=== PATIENT | male | born 1965 | race Hispanic/Latino ===

== ENCOUNTER 2023-04-23 17:55 | Inpatient (IN) | payer SELFPAY ==
[2023-04-23] VITALS (8 sets, daily range): BP systolic 116–149; BP diastolic 67–79; PULSE 99–117; RESP 18–24; TEMP 36.4–36.7; O2SAT 95–100; BMI 26.1; BMI 23.8
[2023-04-23 18:23] LABS: Bedside Glucose > 500 mg/dL (74-106)
[2023-04-23] MEDS: 0.9% Normal Saline (1000mL) 1,000 ML 1000 ML IV (18:30)
[2023-04-23 18:40] LABS: Absolute Lymphocyte Count 0.88 X10^3/uL (0.83-4.51); Absolute Neutrophil Count 23.1 X10^3/uL (2.0-7.7); Basophil# 0.09 X10^3/uL; Basophil% 0.4 % (0-1); Hematocrit 42.3 % (40-54); Hemoglobin 14.1 g/dL (13.0-16.5); Lymphocyte # 0.88 X10^3/ul (0.83-4.51); Lymphocyte % 3.5 % (19-41); Mean Corp Hgb Conc 33.3 g/dL (32-36); Mean Corpuscular Hgb 30.9 pg (27.0-32.0); Mean Corpuscular Volume 92.8 fL (80-94); Monocyte# 1.15 X10^3/uL; Monocyte% 4.5 % (0-10); NRBC Flagged by Analyzer 0 % (0-5); Neutrophil # 23.06 X10^3/uL (2.7-7.7); Neutrophil % 90.5 % (47-70); POSITIVE DIFFERENTIAL YES; Platelet Count 482 K/mm3 (150-450); RBC Distribution Width CV 11.9 % (11.6-14.6); RBC Distribution Width SD 41.2 fl (35.1-43.9); Red Blood Count 4.56 M/mm3 (4.6-6.2); White Blood Count 25.5 K/mm3 (4.4-11.0)
--- NOTE | 2023-04-23 18:42 | EX.ED.DYSGE1 ---
HPI History of Present Illness Chief Complaint: Hyperglycemia Informant: patient Narrative Narrative: Patient presents with high blood sugar. 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 All indications is this person speaks very good [place] Citizen and very good Dominican and I do feel we get a good translation. Patient has had diabetes for a long time. He is not sure how long. He has been on a medicine called TriEnta from [place]. He was told to take it once a day or twice a day if his sugars are high. I am trying to look this up as it may be metformin. He still has the medicine and has not run out. But for the last 5 or so days his blood sugar seems higher. He has been peeing more drinking more and has blurry vision. Occasional cough but not short of breath. No abdominal pain no nausea vomiting. No change in bowel habits. There appears to be something on his legs. We have to get his pants off to look at these. [facility] Medical History Diabetes Home Medications TRAYENTA 1 tab PO BID DIABETES 04/23/23 [History Last Taken 04/22/23] cephalexin 500 mg capsule 500 mg PO Q8 6 days #18 caps 04/27/23 [Rx Last Taken Unknown] insulin admin supplies #1 ea 04/27/23 [Rx Last Taken Unknown] insulin glargine-yfgn 100 unit/mL (3 mL) subcutaneous pen 30 unit (0.3 mL) subcut DAILY 30 days #9 mL 04/27/23 [Rx Last Taken Unknown] Allergy/AdvReac Type Severity Reaction Status Date / Time No Known Allergies Allergy Verified 04/23/23 17:57 Social History Smoking Status: Former smoker ROS ROS ED Constitutional Constitutional ED: Denies chills or fever(s) Eyes Eyes: Reports blurry vision and change in vision ENT ENT ED: Denies sore throat Cardiovascular Cardiovascular: Denies chest pain Respiratory/Chest Respiratory/Chest: Reports cough; Denies dyspnea Gastrointestinal Gastrointestinal: Denies abdominal pain, diarrhea, nausea or vomiting Genitourinary Genitourinary ED: Denies dysuria Musculoskeletal Musculoskeletal: Denies myalgias Integumentary Denies rash Neurologic Neurologic: Denies headache(s), paresthesias or weakness Endocrine Endocrinology: Reports polydipsia and polyuria Hematologic/Lymphatic Hematologic/Lymphatic: Denies easy bleeding or easy bruising Allergic/Immunologic Allergic/Immunologic ED: Denies urticaria EXAM Physical Exam Narrative Exam Narrative: CONSTITUTIONAL: Patient is not toxic. But he is breathing quickly and his mucous membranes are obviously quite dry. HEENT: No notable trauma. Mucous membranes do look quite dry. No sinus tenderness. No indication of pain with swallowing. EYES: No conjunctival injection. No pallor. NECK:No JVD. No stridor. CARDIOVASCULAR: Tachycardic rate. Regular rhythm. No notable murmur. No JVD. RESPIRATORY: No respiratory distress. Breathing is unlabored but it is quicker than normal. No wheezes. No rhonchi. No rales. No pain with a deep breath. No chest wall tenderness. GASTROINTESTINAL: Flat and not distended. Bowel sounds are normal. No tenderness. No guarding. No rebound. No palpable mass. No bruit is heard. GENITOURINARY: No CVA tenderness. MUSCULOSKELETAL: Atraumatic. No peripheral edema. No cord. No tenderness along the deep venous system. No asymmetry. No distended veins. NEUROLOGICAL: Patient is alert and appropriate. No focal deficit noted. SKIN: No noted rashes. No diaphoresis. PSYCHIATRIC: Patient is calm. Mood is appropriate. Const Vital Signs: 04/23/23 17:56 04/23/23 19:11 Temperature 98 F Temperature Source Temporal Pulse Rate 111 H Respiratory Rate 20 H Respiratory Effort Normal Non-Labored Blood Pressure 149/76 H Blood Pressure Mean 100 Pulse Ox 100 Oxygen Delivery Method Room Air MDM MDM MDM Narrative Medical decision making narrative: We were able to get the pants off. There is some discussion argument about this. He also had heavy boots socks on. When we get these off we see the source of his problem. He has multiple sores and small draining abscesses most notably on his right lateral thigh and left proximal anterior lateral moreno. 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 He has never had these before. He still denies any fever with this though. I have added procalcitonin blood cultures lactate and antibiotics at this point. CBC shows significantly high white count supportive of infection as the initiating problem for DKA. Electrolytes show findings consistent with DKA including glucose elevated creatinine low bicarb and high anion gap. At this time potassium is still normal at 5.7. Serum acetone is large. Patient is placed on insulin drip. He will be admitted to the hospital. Lab Data Attestation: I reviewed the patient's lab results. Labs: Laboratory Results - last 24 hr 04/23/23 04/23/23 04/23/23 18:02 18:30 19:45 WBC 25.5 H RBC 4.56 L Hgb 14.1 Hct 42.3 MCV 92.8 MCH 30.9 MCHC 33.3 RDW Std Deviation 41.2 RDW Coeff of Edgar 11.9 Plt Count 482 H MPV 9.0 Immature Gran % (Auto) 1.100 H Neut % (Auto) 90.5 H Lymph % (Auto) 3.5 L [place] % (Auto) 4.5 Eos % (Auto) 0.0 Baso % (Auto) 0.4 Absolute Neuts (auto) 23.1 H Absolute Lymphs (auto) 0.88 Nucleated RBC % 0 Differential Comment SEE COMMENT Platelet Estimate SLT INC RBC Morphology N CHROM Anisocytosis RARE Macrocytosis RARE Ovalocytes RARE Sodium 130 L Potassium 4.7 Chloride 103 Carbon Dioxide 6.0 L* Anion Gap 21 H BUN 29 H Creatinine 1.53 H Estim Creat Clear Calc 41.84 Est GFR (MDRD) Af Amer 60 Est GFR (MDRD) Non-Af 50 L BUN/Creatinine Ratio 19.0 Glucose 667 H* Calcium 9.5 Urine Color Straw Urine Clarity Clear Urine pH 5.0 Ur Specific [place] 1.015 Urine Protein 30 H Urine Glucose (UA) 1000 H Urine Ketones 150 A* Urine Occult Blood 50 H Urine Nitrite Negative Urine Bilirubin Negative Urine Urobilinogen Normal Ur Leukocyte Esterase Negative Acetone Level LARGE H POC Glucose > 500 H* Radiography Diagnostic Testing: Clinical Impression(s) from Imaging Studies Chest X-Ray 04/23/23 20:27 IMPRESSION: Normal x-ray examination of the chest. Electronically Signed: Lux Munoz MD at 20:48 EST , Management Discussion w/another healthcare provider: Hospitalist Critical Care Time Critical Care Time: Yes Critical care time (excluding procedures): 30-74 minutes, Discussing w/Patient &/or Family/Legal Secretary Receptionist, Discussing w/Consultants, Arranging Admission or Transfer, Performing Direct Patient Care at Bedside and - (40 minutes, repeat bedside evaluations, altering therapies, charting, discussing with risk management consultant) Discharge Plan Dx/Rx/DC Orders Clinical Impression: Cutaneous abscess of extremity, DKA (diabetic ketoacidoses), Bilateral cellulitis of lower leg, Dehydration Disposition Disposition: Acute Care Hospital [facility] Discharge Date/Time: 04/23/23 23:10
[2023-04-23 19:03] LABS: Anion Gap 21 (5-15); BUN 29 mg/dL (7-18); Calcium,Total 9.5 mg/dL (8.5-10.1); Chloride 103 mmol/L (98-107); Creatinine, Serum 1.53 mg/dL (0.70-1.30); EST Glomerular Filtration Rate 50 mL/min (>60); Est Glom Filt Rate - Afr Amer 60 mL/min (>60); Estimated Creatinine Clearance 41.84 ml/min; Glucose 667 mg/dL (74-106); Potassium 4.7 mmol/L (3.5-5.1); Sodium Level 130 mmol/L (136-145)
[2023-04-23 19:15] LABS: Differential Indicated SCAN CRITERIA MET
[2023-04-23 19:16] LABS: Anisocytosis RARE; Macrocytosis RARE; Ovalocyte RARE; Platelet Estimate SLT INC (ADEQ); Red Cell Morphology N CHROM NORMAL (NORM C&C)
--- NOTE | 2023-04-23 19:49 | PCM.HP.STD ---
[facility] - General General Date of Admission: 04/23/23 Date of Service: 04/23/23 Chief Complaint: Hyperglycemia and Sores on Legs. HPI Narrative ALEE CAMACHO, is a 58 M with a past medical history of DM-2; of unknown control who presents to [facility] ER complaining of hyperglycemia and sores on his legs. Mr. Camacho does not speak Filipino so information was gathered from chart, medical staff and computer. According to the records he is a chronic diabetic and has been prescribed Tryenta from [place] and he then noted that his blood glucose has been persistently elevated for the past 5 days. He was apparently told to take it once a day or twice a day if his blood glucose was elevated. He informed the ER that he still has the medication and has no run out of it. He admits to excessive thirst, excessive urination and blurry vision along with worsening sores on both of his legs with surrounding erythema. He denies associated fever, chills, nausea, vomiting, diarrhea, constipation or abdominal pain. In the ER he was diagnosed with DKA; evidenced by a blood glucose of 667 mg/dL present on admission and increased anion-gap metabolic acidosis with a HCO3 of 6 and large serum acetone complicated by clinical evidence of cellulitis of his legs with leukocytosis of 25.5 present on admission compounded by suspected AZRA due to dehydration with elevated creatinine of 1.53 mg/dL and BUN of 29 mg/dL present on admission (with no previous labs available for comparison) and he was then admitted to the ICU for ongoing care for a stay that is expected to be greater than 48 hours. [facility] Medical History Diabetes Home Medications TRAYENTA 1 tab PO BID DIABETES 04/23/23 [History Last Taken 04/22/23] Allergy/AdvReac Type Severity Reaction Status Date / Time No Known Allergies Allergy Verified 04/23/23 17:57 Social History Smoking Status: Former smoker ROS ROS Narrative Patient does not speak Filipino so a full ROS was not possible. Review of Systems ROS Unobtainable: other Vital Signs Vital Signs Vital Signs: 04/23/23 17:56 04/23/23 19:11 Temperature 98 F Temperature Source Temporal Pulse Rate 111 H Respiratory Rate 20 H Respiratory Effort Normal Non-Labored Blood Pressure 149/76 H Blood Pressure Mean 100 Pulse Ox 100 Oxygen Delivery Method Room Air Weight Weight: 147 lb 7 oz Body Mass Index (BMI) 26.1 Physical Exam Const alert, oriented x3, no apparent distress and average body habitus General Appearance: cooperative HEENT normocephalic, head/scalp atraumatic and hearing grossly normal bilaterally HEENT Narrative: Mucous membranes appear dry. Eyes PERRL, EOMs intact bilaterally and conjunctivae normal Neck no lymphadenopathy and supple Resp normal respiratory effort, no retractions, no use of accessory muscles and clear to auscultation bilaterally Cardio regular rate and regular rhythm GI normal to inspection, nondistended, normoactive bowel sounds, soft to palpation, non-tender and non-distended Skin Skin Narrative: Patient has several sores on both lower extremities with evidence of surrounding cellulitis and suspected abscesses. Neuro oriented x3, CN's II-XII intact bilaterally, moves all extremities and no focal motor deficits Sensorium / Orientation: awake, alert, oriented to person, oriented to place and oriented to time Speech: speech normal Motor Exam: strength 5/5 throughout Psych affect normal Results Medical Records Data Attestation: I reviewed the patient's medical records Lab / Micro Data Attestation: I reviewed the patient's lab results. 04/23/23 18:30 04/23/23 19:40 Labs: Laboratory Results - last 24 hr 04/23/23 18:02: POC Glucose > 500 H* 04/23/23 18:30: WBC 25.5 H, RBC 4.56 L, Hgb 14.1, Hct 42.3, MCV 92.8, MCH 30.9, MCHC 33.3, RDW Std Deviation 41.2, RDW Coeff of Edgar 11.9, Plt Count 482 H, MPV 9.0, Immature Gran % (Auto) 1.100 H, Neut % (Auto) 90.5 H, Lymph % (Auto) 3.5 L, Esmeralda % (Auto) 4.5, Eos % (Auto) 0.0, Baso % (Auto) 0.4, Absolute Neuts (auto) 23.1 H, Absolute Lymphs (auto) 0.88, Nucleated RBC % 0, Differential Comment SEE COMMENT, Platelet Estimate SLT INC, RBC Morphology N CHROM, Anisocytosis RARE, Macrocytosis RARE, Ovalocytes RARE, Sodium 130 L, Potassium 4.7, Chloride 103, Carbon Dioxide 6.0 L*, Anion Gap 21 H, BUN 29 H, Creatinine 1.53 H, Estim Creat Clear Calc 41.84, Est GFR (MDRD) Af Amer 60, Est GFR (MDRD) Non-Af 50 L, BUN/Creatinine Ratio 19.0, Glucose 667 H*, Calcium 9.5, Acetone Level LARGE H Assessment & Plan Assessment/Plan (1) DKA (diabetic ketoacidoses): QUALIFIERS: Diabetes mellitus type: type 2 Diabetes mellitus complication detail: without coma Qualified Code(s): E11.10 - Type 2 diabetes mellitus with ketoacidosis without coma (2) Bilateral cellulitis of lower leg: (3) AZRA (acute kidney injury): PLAN: Plan 1. DKA; in the setting of chronic DM-2; uncontrolled with hyperglycemia - Admit to ICU for treatment under the DKA protocol. Continue IV insulin drip along with vigorous volume resuscitation. Recheck serum acetone in the AM to monitor for improvement. 2. LE Cellulitis with leukocytosis of 25.5 present on admission complicating and likely triggering #1 - Continue IV Zosyn begun in the ER and await culture and sensitivity data. 3. Suspected AZRA due to Dehydration arising from #1 & #2 - Give copious IVF and then recheck BMP in the AM to confirm suspicion with no previous labs available for comparison. 4. DVT prophylaxis - Lovenox 40 mg sq daily. Total time: Approximately 55 minutes. Charges/Coding Visit Charges Inpatient E&M: 46841 Init Hosp L2
[2023-04-23 19:51] LABS: Color, Urine Straw (Yellow); Glucose, Dipstick 1000 mg/dl (Normal); Leukocyte Esterase-Dipstick Negative /ul (Negative); Nitrite-Dipstick Negative (Negative); Occult Blood-Urine 50 /ul (Negative); Protein-Dipstick 30 mg/dl (Negative); Specific Gravity, Urine 1.015 (1.002-1.030); Urine Bilirubin Dipstick Negative (Negative); Urine Clarity Clear (Clear); Urine Urobilinogen Normal (Normal)
[2023-04-23] MEDS: Insulin Lispro 100 UNIT in 0.9% Normal Saline (100mL Bag) 99 ML 6.70000000000000018 UNIT CONT INF (19:53)
[2023-04-23 19:55] LABS: Ketone-Dipstick 150 mg/dl (Negative)
--- NOTE | 2023-04-23 19:55 | EKG12_ITS ---
Test Reason : DKA/SEPSIS Blood Pressure : / mmHG Vent. Rate : 106 BPM Atrial Rate : 106 BPM P-R Int : 122 ms QRS Dur : 086 ms QT Int : 354 ms P-R-T Axes : 045 064 014 degrees QTc Int : 470 ms Sinus tachycardia Nonspecific ST abnormality Abnormal ECG Baseline artifact Confirmed by Mohan Dumont ([id number]), acquisition editor ANGELA POSADA ([id number]) on 04/24/2023 11:00:46 AM Referred By: GAMA Confirmed By:Mohan Dumont
--- NOTE | 2023-04-23 20:27 | RAD_ITS ---
STUDY: X-RAY CHEST REASON FOR EXAM: Male, 58 years old. cough TECHNIQUE: PA and lateral views of the chest. COMPARISON: None. FINDINGS: The lungs are clear and expanded. There is no demonstrated pleural abnormality. Normal size heart. Normal mediastinum and tu. Normal visualized pulmonary arteries. Normal visualized aortic arch and descending thoracic aorta. Normal visualized thoracic spine. Normal visualized ribs, clavicles, and shoulders. There is no demonstrated abnormality of the visualized soft tissue structures of the upper abdomen. RAD/Chest PA and Lateral IMPRESSION: Normal x-ray examination of the chest. Electronically Signed: Lux Munoz MD at 20:48 EST ,
[2023-04-23] MEDS: 0.9% Normal Saline (1000mL) 1,000 ML 999 ML IV (20:32)
[2023-04-23] MEDS: Piperacil/Tazobactam 4.5 GM in 0.9% Normal Saline (100mL MB+) 100 ML IV (20:33)
[2023-04-23 20:35] LABS: Procalcitonin 0.31 ng/mL (0.00-0.09)
[2023-04-23 20:36] LABS: Anion Gap 20 (5-15); BUN 28 mg/dL (7-18); BUN/Creat Ratio 20.3 RATIO (10-20); Calcium,Total 8.7 mg/dL (8.5-10.1); Chloride 108 mmol/L (98-107); Creatinine, Serum 1.38 mg/dL (0.70-1.30); EST Glomerular Filtration Rate 56 mL/min (>60); Est Glom Filt Rate - Afr Amer 68 mL/min (>60); Estimated Creatinine Clearance 46.39 ml/min; Glucose 585 mg/dL (74-106); Magnesium 2.5 mg/dL (1.6-2.6); Potassium 4.5 mmol/L (3.5-5.1); Sodium Level 134 mmol/L (136-145)
[2023-04-23] MEDS: 0.9% Normal Saline (1000mL) 1,000 ML 500 ML IV (20:44)
[2023-04-23 20:49] LABS: Amphetamine Urine VISTA NEGATIVE (<1000 ng/mL); Barbiturate Urine VISTA NEGATIVE (< 200 ng/mL); Benzodiazepine Urine VISTA NEGATIVE (< 200 ng/mL); Cocaine Urine VISTA NEGATIVE (< 300 ng/mL); Ecstacy Urine VISTA NEGATIVE (< 500 ng/mL); Methadone Urine VISTA NEGATIVE (< 300 ng/mL); PCP Urine VISTA NEGATIVE (< 25 ng/mL); THC Urine VISTA NEGATIVE (< 50 ng/mL); Vista UDS pH Range 5
[2023-04-23 20:50] LABS: Hemoglobin A1c 11.5 % (3.8-5.6)
[2023-04-23 20:53] LABS: Lactic Acid 1.5 mmol/L (0.4-1.9)
[2023-04-23 21:02] LABS: Osmolality, Serum 332 mOsm/KG (275-295)
[2023-04-23 21:38] LABS: Allen Test Positive; Base Excess -23 mmol/L (-2 to +2); Blood Gas Specimen Type ART; Mode Not entered; O2 Delivery Device Room Air; PO2 108 mmHG (75-100); SITE R Radial; SO2 97 % (95-99); Time Given 21:35:33; Total Carbon Dioxide 7 mmol/L; pCO2 17.5 mmHg (35-45); pH 7.14 (7.35-7.45)
[2023-04-23 21:56] LABS: Bedside Glucose 360 mg/dL (74-106)
[2023-04-23 23:04] LABS: Bedside Glucose 310 mg/dL (74-106)
[2023-04-23] MEDS: Vancomycin HCl 1,750 MG in 0.9% Normal Saline (500mL Bag) 500 ML 250 MG IV (23:47)
[2023-04-23] MEDS: 0.9% Normal Saline (250mL Bag) 250 ML 15 ML IV (23:56)
[2023-04-24] VITALS (22 sets, daily range): BP systolic 95–119; BP diastolic 56–70; PULSE 82–104; RESP 16–24; TEMP 36.6–37; O2SAT 94–100; BMI 23.9
--- NOTE | 2023-04-24 00:17 | PCM.RX.CS ---
Consult Antibiotic Management Pharmacy has been consulted to manage selected antibiotic: Vancomycin Type of Intervention Type of Consult: New start Labs Labs: Sodium 134 mmol/L (136-145) L 04/23/23 19:40 Sodium Cancelled 04/23/23 19:40 Potassium 4.5 mmol/L (3.5-5.1) 04/23/23 19:40 Potassium Cancelled 04/23/23 19:40 Chloride 108 mmol/L (98-107) H 04/23/23 19:40 Chloride Cancelled 04/23/23 19:40 Carbon Dioxide 6.0 mmol/L (21.0-32.0) L* 04/23/23 19:40 Carbon Dioxide Cancelled 04/23/23 19:40 Anion Gap 20 (5-15) H 04/23/23 19:40 Anion Gap Cancelled 04/23/23 19:40 BUN 28 mg/dL (7-18) H 04/23/23 19:40 BUN Cancelled 04/23/23 19:40 Creatinine 1.38 mg/dL (0.70-1.30) H 04/23/23 19:40 Creatinine Cancelled 04/23/23 19:40 Est GFR (MDRD) Af Amer 68 mL/min (>60) 04/23/23 19:40 Est GFR (MDRD) Af Amer Cancelled 04/23/23 19:40 Est GFR (MDRD) Non-Af 56 mL/min (>60) L 04/23/23 19:40 Est GFR (MDRD) Non-Af Cancelled 04/23/23 19:40 BUN/Creatinine Ratio 20.3 RATIO (10-20) H 04/23/23 19:40 BUN/Creatinine Ratio Cancelled 04/23/23 19:40 Glucose 585 mg/dL (74-106) H* 04/23/23 19:40 Glucose Cancelled 04/23/23 19:40 Microbiology Microbiology: Microbiology 04/23/23 20:15 Mucosa - Nose SARS-CoV-2, Influenza & RSV (PCR) - Final Dosing Weight Weight used for dosin kg Estimated Creatinine Clearance Estimated Creatinine Clearance: 49.5 Goal Trough Goal Trough: 15-20 mcg/mL Pharmacy Plan for Drug Dosing Pharmacy Plan for Drug Dosing: Pharmacy Service will continue to monitor and adjust dosing as required. Follow-Up Labs Follow-Up Labs: Trough: Vancomycin Date/Time Labs Ordered Labs to be done on [date and time ordered]: 04/25 @ 1190
[2023-04-24 00:41] LABS: Bedside Glucose 313 mg/dL (74-106)
[2023-04-24] MEDS: KCL 20MEQ in 0.45%NS 20 MEQ/1,000 ML IV.SOLN. 175 MEQ IV (00:53)
[2023-04-24 00:55] LABS: BUN 26 mg/dL (7-18); BUN/Creat Ratio 24.3 RATIO (10-20); Calcium,Total 8.3 mg/dL (8.5-10.1); Creatinine, Serum 1.07 mg/dL (0.70-1.30); Estimated Creatinine Clearance 62.24 ml/min; Glucose 339 mg/dL (74-106); Potassium 3.7 mmol/L (3.5-5.1); Sodium Level 140 mmol/L (136-145); Troponin-I HS 32 pg/mL (3.0-78.0)
[2023-04-24 00:56] LABS: Anion Gap 13 (5-15); Chloride 118 mmol/L (98-107)
[2023-04-24 02:42] LABS: Bedside Glucose 273 mg/dL (74-106)
[2023-04-24 02:42] LABS: Bedside Glucose 244 mg/dL (74-106)
[2023-04-24 03:13] LABS: Bedside Glucose 212 mg/dL (74-106)
[2023-04-24 03:15] LABS: EST Glomerular Filtration Rate 75 mL/min (>60); Est Glom Filt Rate - Afr Amer 91 mL/min (>60)
[2023-04-24 03:30] LABS: M R Staph aureus DNA By PCR Negative (Negative); Probe Check PASS; Specimen Processing Control PASS; Staph aureus DNA By PCR NEGATIVE (Negative)
[2023-04-24 03:31] LABS: Anion Gap 11 (5-15); BUN 24 mg/dL (7-18); BUN/Creat Ratio 26.1 RATIO (10-20); Chloride 118 mmol/L (98-107); Creatinine, Serum 0.92 mg/dL (0.70-1.30); EST Glomerular Filtration Rate 90 mL/min (>60); Est Glom Filt Rate - Afr Amer 108 mL/min (>60); Estimated Creatinine Clearance 72.39 ml/min; Glucose 233 mg/dL (74-106); Potassium 3.4 mmol/L (3.5-5.1); Sodium Level 141 mmol/L (136-145); Troponin-I HS 39 pg/mL (3.0-78.0)
[2023-04-24] MEDS: KCL 20MEQ in D5.45NS 20 MEQ/1,000 ML IV.SOLN. 175 MEQ IV ×2 (03:31→08:08)
[2023-04-24] MEDS: 0.9% Saline Lock 10 ML Syringe IV ×3 (04:04→06:45)
[2023-04-24 04:26] LABS: Bedside Glucose 223 mg/dL (74-106)
[2023-04-24 04:39] LABS: Anion Gap 12 (5-15); BUN 24 mg/dL (7-18); BUN/Creat Ratio 24.7 RATIO (10-20); Calcium,Total 8.1 mg/dL (8.5-10.1); Chloride 119 mmol/L (98-107); Creatinine, Serum 0.97 mg/dL (0.70-1.30); EST Glomerular Filtration Rate 84 mL/min (>60); Est Glom Filt Rate - Afr Amer 102 mL/min (>60); Estimated Creatinine Clearance 68.66 ml/min; Glucose 230 mg/dL (74-106); Potassium 3.5 mmol/L (3.5-5.1); Sodium Level 142 mmol/L (136-145)
[2023-04-24] MEDS: Piperacil/Tazobactam 3.375 GM in 0.9% Normal Saline (50mL MB+) 50 ML IV ×3 (05:10→21:46)
[2023-04-24 05:32] LABS: Bedside Glucose 194 mg/dL (74-106)
[2023-04-24 05:37] LABS: Absolute Lymphocyte Count 1.87 X10^3/uL (0.83-4.51); Absolute Neutrophil Count 16.3 X10^3/uL (2.0-7.7); Basophil# 0.05 X10^3/uL; Basophil% 0.3 % (0-1); Eosinophil# 0.03 X10^3/uL; Eosinophils% 0.2 % (0-5); Hematocrit 32.9 % (40-54); Lymphocyte # 1.87 X10^3/ul (0.83-4.51); Lymphocyte % 9.5 % (19-41); Mean Corp Hgb Conc 33.4 g/dL (32-36); Mean Corpuscular Hgb 30.2 pg (27.0-32.0); Mean Corpuscular Volume 90.4 fL (80-94); Mean Platelet Vol. 8.8 fl (6.2-12.0); Monocyte# 1.29 X10^3/uL; Monocyte% 6.6 % (0-10); NRBC Flagged by Analyzer 0 % (0-5); Neutrophil # 16.25 X10^3/uL (2.7-7.7); Neutrophil % 82.4 % (47-70); Platelet Count 370 K/mm3 (150-450); RBC Distribution Width SD 39.7 fl (35.1-43.9); Red Blood Count 3.64 M/mm3 (4.6-6.2); White Blood Count 19.7 K/mm3 (4.4-11.0)
[2023-04-24 06:04] LABS: Anion Gap 8 (5-15); BUN 20 mg/dL (7-18); BUN/Creat Ratio 20.8 RATIO (10-20); Chloride 118 mmol/L (98-107); Creatinine, Serum 0.96 mg/dL (0.70-1.30); EST Glomerular Filtration Rate 85 mL/min (>60); Est Glom Filt Rate - Afr Amer 103 mL/min (>60); Estimated Creatinine Clearance 69.38 ml/min; Glucose 217 mg/dL (74-106); Potassium 3.2 mmol/L (3.5-5.1); Sodium Level 140 mmol/L (136-145); Thyroid Stim Hormone (TSH) 0.82 uIU/mL (0.358-3.74); Troponin-I HS 37 pg/mL (3.0-78.0)
[2023-04-24 06:21] LABS: Bedside Glucose 228 mg/dL (74-106)
[2023-04-24] MEDS: Potassium Chloride Oral Tablet 20 MEQ 60 MEQ PO (06:45)
--- NOTE | 2023-04-24 06:50 | PCM.RX.CS ---
Consult Antibiotic Management Pharmacy has been consulted to manage selected antibiotic: Vancomycin Type of Intervention Type of Consult: Follow-up Labs Labs: Sodium 140 mmol/L (136-145) 04/24/23 05:07 Potassium 3.2 mmol/L (3.5-5.1) L 04/24/23 05:07 Chloride 118 mmol/L (98-107) H 04/24/23 05:07 Carbon Dioxide 14.0 mmol/L (21.0-32.0) L 04/24/23 05:07 Anion Gap 8 (5-15) 04/24/23 05:07 BUN 20 mg/dL (7-18) H 04/24/23 05:07 Creatinine 0.96 mg/dL (0.70-1.30) 04/24/23 05:07 Est GFR (MDRD) Af Amer 103 mL/min (>60) 04/24/23 05:07 Est GFR (MDRD) Non-Af 85 mL/min (>60) 04/24/23 05:07 BUN/Creatinine Ratio 20.8 RATIO (10-20) H 04/24/23 05:07 Glucose 217 mg/dL (74-106) H 04/24/23 05:07 Microbiology Microbiology: Microbiology 04/23/23 20:15 Mucosa - Nose SARS-CoV-2, Influenza & RSV (PCR) - Final Goal Trough Goal Trough: 15-20 mcg/mL Pharmacy Plan for Drug Dosing Pharmacy Plan for Drug Dosing: DAILY ASSESSMENT Current Vancomycin Dose: 500mg IV Q12hr Number of Doses Received: 1 (loading dose- no scheduled administrations yet) Current Renal Function: SCr 0.96/ CrCl 69 mL/min Renal Function Trend: Significant improvement from yesterday Lab/Micro: BCx 04/12 pending Any Change in Vanc Plan: Yes. Patient with significant improvement in renal function from initiation of vancomycin. patient now qualifies for 750mg IV Q12hr per dosing nomogram. Will discontinue vancomycin 500mg IV Q12hr and start vancomycin 750mg IV Q12hr to start 04/24/23 @1200. Since the patient has not received any scheduled doses of original regimen, will keep initial scheduled trough the same. Pending Level: 04/25/23 @1130 Pharmacy Service will continue to monitor and adjust dosing as required.
[2023-04-24 07:15] LABS: Bedside Glucose 191 mg/dL (74-106)
--- NOTE | 2023-04-24 08:15 | US_ITS ---
STUDY: SUPERFICIAL ULTRASOUND - RIGHT LOWER EXTREMITY. REASON FOR EXAM: Male, 58 years old. Bilateral lower extremity abscesses -- Evaluate for any drainable fluid collections TECHNIQUE: A superficial ultrasound was performed with real-time and static leach-scale imaging. COMPARISON: None. FINDINGS: The right leg was examined with ultrasound. There is diffuse soft tissue edema in the lateral lower leg. There is evidence of a fluid collection with debris measuring 1.1 cm x 0.9 cm x 1 cm. IMPRESSION: Diffuse soft tissue edema with a heterogeneous fluid collection measuring 0.9 cm x 1.1 cm x 1 cm. Electronically Signed: Kit Zapata MD at 10:37 EST , STUDY: ARTERIAL DOPPLER ULTRASOUND - LEFT LOWER EXTREMITY REASON FOR EXAM: Male, 58 years old. Bilateral lower extremity abscesses -- Evaluate for any drainable fluid collections TECHNIQUE: Arterial color Doppler and duplex ultrasonography with spectral analysis. Arterial blood pressures of the unilateral arm and ankle was obtained with calculation of an ankle-brachial indices (JOSHUA) of the unilateral lower extremities. COMPARISON: None. FINDINGS: LEFT Leg The left leg was examined with ultrasound. In the lateral aspect of the midportion of the leg, there is heterogeneous fluid collection measuring 2.1 cm x 3.1 cm x 0.8 cm. This is posterior to the wound. Drainage is recommended. Is also evidence of diffuse soft tissue edema. JOSHUA: US/Ext Non Vasc Limited/Soft Tiss IMPRESSION: Distal to the wound overlying the left leg, there is a 2.1 cm x 3.1 cm x 0.8cm heterogeneous fluid collection. Drainage is recommended. Diffuse soft tissue edema. Electronically Signed: Kit Zapata MD at 10:38 EST ,
--- NOTE | 2023-04-24 10:10 | CASEMGMT ---
RN CM Assessment: Face to Face with pt for initial transition planning/care coordination assessment. RN CM introduced self and role at [facility], pt voices understanding and consents to assessment. Pt is A&O x4 and answers all questions appropriately at this time. RN SALINAS used Ipad billet recorder to complete assessment with pt. Pt friend John Luna present in room. Pt agreeable to assessment with friend present. Nurse Hans in room during assessment as well. Care providers, pharmacy, and demographics verified/updated. Admitting Dx: DKA and LE cellulitis with abscesses PCP:None Specialists:Denies Preferred Pharmacy:[facility] Insurance: Self Pay Prescription Benefit: no LNOK: Anuj Chapman, friend Living Arrangements: Pt lives with dtr in a single story home with no steps to enter. Pt reports he is I in ADL's and denies concerns at home. Initially pt stated he was staying in a hotel but then changed this. Transportation: Pt does not drive. Friend John provides transportation. DME:BGM with sufficient strips and lancets HHC/SNF: Denies hx of Pt states no concerns with going home at time of dc. He plans on dc'ing home. Nurse Hans states that pt has wounds to LE's and to see pt at bedside today. Pt is aware that this RN CM will follow for any needs after evaluation and will follow for wound care. Pt states no further concerns/needs. Advised pt to ask CM if any further question/concerns/needs arise, voices understanding. Pt Goal: Home Plan: Home, will follow for wound care needs, PCP ready to enter room with PA upon RN CM leaving room.
[2023-04-24 10:54] LABS: Bedside Glucose 119 mg/dL (74-106)
--- NOTE | 2023-04-24 10:56 | PN.HOSP_ITS ---
Subjective Subjective Doing well, no issues overnight. DKA has resolved Objective Data Objective Data Vital Signs: Vital Signs Temp Pulse Resp BP Pulse Ox O2 Del Method 98.2 F 82 20 H 108/57 L 100 Room Air 04/24/23 08:00 04/24/23 09:00 04/24/23 09:00 04/24/23 09:00 04/24/23 09:00 04/24/23 09:00 Oxygen Delivery Method Room Air Weight: 139 lb 8.842 oz Body Mass Index (BMI) 23.9 Intake & Output: Intake and Output for Last 24 Hours 04/23/23 04/24/23 04/25/23 03:59 03:59 03:59 Intake Total 4120.54 / 4120.54 889.23 / 889.23 Output Total 600 / 600 Balance 3520.54 / 3520.54 889.23 / 889.23 Lab / Micro Data 04/24/23 05:07 04/24/23 05:07 Labs: Laboratory Results - last 24 hr 04/23/23 18:02: POC Glucose > 500 H* 04/23/23 18:30: WBC 25.5 H, RBC 4.56 L, Hgb 14.1, Hct 42.3, MCV 92.8, MCH 30.9, MCHC 33.3, RDW Std Deviation 41.2, RDW Coeff of Edgar 11.9, Plt Count 482 H, MPV 9.0, Immature Gran % (Auto) 1.100 H, Neut % (Auto) 90.5 H, Lymph % (Auto) 3.5 L, Cooke % (Auto) 4.5, Eos % (Auto) 0.0, Baso % (Auto) 0.4, Absolute Neuts (auto) 23.1 H, Absolute Lymphs (auto) 0.88, Nucleated RBC % 0, Differential Comment SEE COMMENT, Platelet Estimate [employer] [employer], RBC Morphology N CHROM, Anisocytosis RARE, Macrocytosis RARE, Ovalocytes RARE, Sodium 130 L, Potassium 4.7, Chloride 103, Carbon Dioxide 6.0 L*, Anion Gap 21 H, BUN 29 H, Creatinine 1.53 H, Estim Creat Clear Calc 41.84, Est GFR (MDRD) Af Amer 60, Est GFR (MDRD) Non-Af 50 L, BUN/Creatinine Ratio 19.0, Glucose 667 H*, Calcium 9.5, Acetone Level LARGE H 04/23/23 19:40: Sodium Cancelled 04/23/23 19:40: Sodium 134 L, Potassium Cancelled 04/23/23 19:40: Potassium 4.5, Chloride Cancelled 04/23/23 19:40: Chloride 108 H, Carbon Dioxide Cancelled 04/23/23 19:40: Carbon Dioxide 6.0 L*, Anion Gap Cancelled 04/23/23 19:40: Anion Gap 20 H, BUN Cancelled 04/23/23 19:40: BUN 28 H, Creatinine Cancelled 04/23/23 19:40: Creatinine 1.38 H, Estim Creat Clear Calc Cancelled 04/23/23 19:40: Estim Creat Clear Calc 46.39, Est GFR (MDRD) Af Amer Cancelled 04/23/23 19:40: Est GFR (MDRD) Af Amer 68, Est GFR (MDRD) Non-Af Cancelled 04/23/23 19:40: Est GFR (MDRD) Non-Af 56 L, BUN/Creatinine Ratio Cancelled 04/23/23 19:40: BUN/Creatinine Ratio 20.3 H, Glucose Cancelled 04/23/23 19:40: Glucose 585 H*, Calcium Cancelled 04/23/23 19:40: Calcium 8.7, Magnesium 2.5, Procalcitonin 0.31 H 04/23/23 19:45: Urine Color Straw, Urine Clarity Clear, Urine pH 5.0, Ur Specifi c [place] 1.015, Urine Protein 30 H, Urine Glucose (UA) 1000 H, Urine Ketones 150 A*, Urine Occult Blood 50 H, Urine Nitrite Negative, Urine Bilirubin Negative, Urine Urobilinogen Normal, Ur Leukocyte Esterase Negative 04/23/23 20:20: Hemoglobin A1c 11.5 H, Serum Osmolality 332 H, Lactic Acid 1.5, Urine Opiates Screen NEGATIVE, Urine Methadone Screen NEGATIVE, Ur Barbiturates Screen NEGATIVE, Ur Phencyclidine Scrn NEGATIVE, Ur Amphetamines Screen NEGATIVE, MDMA (Ecstasy) Screen NEGATIVE, U Benzodiazepines Scrn NEGATIVE, Urine Cocaine Screen NEGATIVE, U Cannabinoids Screen NEGATIVE, Ur Drug Screen Comment 04/23/23 21:38: POC Glucose 360 H 04/23/23 22:44: POC Glucose 310 H 04/24/23 00:05: POC Glucose 313 H 04/24/23 00:10: S.aureus Protein A PCR NEGATIVE, MRSA (PCR) Negative 04/24/23 00:15: Sodium 140, Potassium 3.7, Chloride 118 H, Carbon Dioxide 9.0 L* , Anion Gap 13, BUN 26 H, Creatinine 1.07, Estim Creat Clear Calc 62.24, Est GFR (MDRD) Af Amer 91, Est GFR (MDRD) Non-Af 75, BUN/Creatinine Ratio 24.3 H, Glucose 339 H, Calcium 8.3 L, Troponin I High Sens 32 04/24/23 00:55: Sodium 141, Potassium 3.4 L, Chloride 118 H, Carbon Dioxide 12.0 L, Anion Gap 11, BUN 24 H, Creatinine 0.92, Estim Creat Clear Calc 72.39, Est GFR (MDRD) Af Amer 108, Est GFR (MDRD) Non-Af 90, BUN/Creatinine Ratio 26.1 H, Glucose 233 H, Calcium 8.0 L, Troponin I High Sens 39 04/24/23 01:06: POC Glucose 273 H 04/24/23 02:08: POC Glucose 244 H 04/24/23 02:50: Sodium 142, Potassium 3.5, Chloride 119 H, Carbon Dioxide 11.0 L , Anion Gap 12, BUN 24 H, Creatinine 0.97, Estim Creat Clear Calc 68.66, Est GFR (MDRD) Af Amer 102, Est GFR (MDRD) Non-Af 84, BUN/Creatinine Ratio 24.7 H, Glucose 230 H, Calcium 8.1 L 04/24/23 02:54: POC Glucose 212 H 04/24/23 04:01: POC Glucose 223 H 04/24/23 05:07: WBC 19.7 H, RBC 3.64 L, Hgb 11.0 L, Hct 32.9 L, MCV 90.4, MCH 30.2, MCHC 33.4, RDW Std Deviation 39.7, RDW Coeff of Edgar 12.0, Plt Count 370, MPV 8.8, Immature Gran % (Auto) 1.000 H, Neut % (Auto) 82.4 H, Lymph % (Auto) 9.5 L, [place] % (Auto) 6.6, Eos % (Auto) 0.2, Baso % (Auto) 0.3, Absolute Neuts (auto) 16.3 H, Absolute Lymphs (auto) 1.87, Nucleated RBC % 0, Sodium 140, Potassium 3.2 L, Chloride 118 H, Carbon Dioxide 14.0 L, Anion Gap 8, BUN 20 H, Creatinine 0.96, Estim Creat Clear Calc 69.38, Est GFR (MDRD) Af Amer 103, Est GFR (MDRD) Non-Af 85, BUN/Creatinine Ratio 20.8 H, Glucose 217 H, Calcium 8.0 L, Troponin I High Sens 37, TSH 0.82, POC Glucose 194 H 04/24/23 06:03: POC Glucose 228 H 04/24/23 06:55: Acetone Level SMALL H, POC Glucose 191 H 04/24/23 10:33: POC Glucose 119 H Micro: Microbiology 04/23/23 20:15 Mucosa - Nose SARS-CoV-2, Influenza & RSV (PCR) - Final ABG Data ABG results: ABG 04/23/23 21:33 Specimen Type ART Sample Site R Radial pH 7.14 L* Bicarbonate Actual 6.0 L Total CO2 7 Base Excess -23 L O2 Saturation 97 ABG pCO2 17.5 L* ABG pO2 108 H Jason Test Positive O2 Delivery Device Room Air Vent Mode Not entered Crit Call To/Read Back Yes Blood Gas Notified Whom Dr Goetz Blood Gas Notified Time 21:35:33 Radiography Diagnostic Testing: Radiology Impression Chest X-Ray 04/23/23 20:27 IMPRESSION: Normal x-ray examination of the chest. Electronically Signed: Lux Munoz MD at 20:48 EST , Soft Tissue Ultrasound 04/24/23 08:15 IMPRESSION: Distal to the wound overlying the left leg, there is a 2.1 cm x 3.1 cm x 0.8cm heterogeneous fluid collection. Drainage is recommended. Diffuse soft tissue edema. Electronically Signed: Kit Zapata MD at 10:38 EST , Physical Exam Narrative General: Alert, Oriented x3, Cooperative, No apparent distress HEENT: Atraumatic, PERRLA, EOMI, Normocephalic Oral: Moist Mucosa Neck: Supple, No JVD Lungs: Diminished, Normal air movement, No rhonchi, No wheeze, No rales Cardiovascular: Regular rate, Regular Rhythm, Normal S1, Normal S2, No murmurs Abdomen: Soft, Non Tender, Non-Distended, No Hepato-splenomegaly Extremities: No edema, Capillary Refill Less than 3 Seconds Skin: Lower extremity cellulitis surrounding possible abscess Musculoskeletal: No Tenderness to Palpation of Joints or Extremities Neurological: No focal neurological deficits, Motor Exam 5/5 strength throughout, Sensory exam intact to light touch and pain Psych/Mental Status: Normal Affect, Appropriate Assessment & Plan Assessment/Plan (1) DKA (diabetic ketoacidoses): QUALIFIERS: Diabetes mellitus type: type 2 Diabetes mellitus complication detail: without coma Qualified Code(s): E11.10 - Type 2 diabetes mellitus with ketoacidosis without coma (2) Bilateral cellulitis of lower leg: (3) AZRA (acute kidney injury): PLAN: Plan 1. DKA in the setting of uncontrolled type 2 diabetes with AZRA ? Continue with the DKA protocol, his gap is closed his bicarb is still 14 which is improved from admission ? Plan for subcu insulin transition today and can have him start a diet after surgery assesses his abscesses ? Will find DKA and type 2 diabetes instructions in [place] if possible for discharge ? Continue with IV fluids ? On admission his creatinine was 1.53 and currently at 0.96 consistent with AZRA 2. Lower extremity cellulitis with possible abscess ? This is likely contributing to his DKA ? Continue with IV antibiotics ? Will await cultures ? Appreciate general surgery's assistance DVT: Gisselle Charges/Coding Visit Charges Inpatient E&M: 82096 Subs Hosp L2
[2023-04-24 11:20] LABS: Bedside Glucose 104 mg/dL (74-106)
[2023-04-24 11:20] LABS: Bedside Glucose 147 mg/dL (74-106)
[2023-04-24] MEDS: Enoxaparin 40 MG/0.4 ML Syringe SC (11:49)
[2023-04-24] MEDS: HYDROmorphone 0.5 MG/0.5 ML SYRINGE 0.25 MG IV (11:50)
[2023-04-24] MEDS: Insulin Glargine-YFGN 100 UNIT/ML Pen 10 UNIT SC (11:50)
--- NOTE | 2023-04-24 12:07 | EX.PCM.CON.S ---
Assessment & Plan Assessment/Plan (1) Cutaneous abscess of extremity: PLAN: This is a 58-year-old male with multiple subcutaneous abscesses of the bilateral lower extremities. Some of these are spontaneously draining in greater detail as given as to their location in the exam section of this note. It appears that Alisson Camacho had an injury to the lateral aspect of the left lower extremity and that this potentially became secondarily infected leading to a number of satellite infections of smaller size. I find it probable that these areas are at least?in part?reason for his hyperglycemia and subsequent DKA. Thus, after confirming absence of any anticoagulation or allergies, I recommended proceeding with bedside incision and drainage procedures for each site to promote drainage and obtain cultures for guidance of antimicrobial selection. Translation was provided in part by patient's friend who is at bedside as well as from a translation service in the ICU. HPI Consult Data Date of Consult: 04/24/23 HPI Narrative Reason for Consultation: multiple lower extremity abscesses HPI Narrative: ALEE CAMACHO, is a 58, Portuguese-speaking only, M who presents to [facility] with complaints of hyperglycemia and cellulitis to bilateral lower extremities. In fact, on intake to the emergency department patient was in diabetic ketoacidosis with an anion gap of 21. He was thus admitted to the ICU where he was kept on an insulin drip and his gap closed by this morning. Additionally remarkable and his laboratories was a white blood cell count of 19,000. Due to some apparent fluctuance associated with the cellulitis surgery was consulted for possible incision and drainage procedure. Patient is originally from [place] and states that normally his blood sugars are well-controlled at home?estimating the average value that is 160. However, for the last 3 weeks he has seen values regularly over 300. 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 [facility] Medical History Diabetes Home Medications TRAYENTA 1 tab PO BID DIABETES 04/23/23 [History Last Taken 04/22/23] Allergy/AdvReac Type Severity Reaction Status Date / Time No Known Allergies Allergy Verified 04/23/23 17:57 Social History Smoking Status: Former smoker Physical Exam Const alert, oriented x3 and no apparent distress Extremity Extremity Narrative: Bilateral lower extremity cellulitis with some spontaneously draining wounds. Patient has 3 small areas of fluctuance in the right thigh with 1 being located anteriorly and 2 posteriorly. There is an additional area with fluctuance in the pretibial region on the right. Lastly on the left lower extremity there is an area that is fluctuant but appears to lie deep to a prior abrasion. This is located in the region lateral of the tibial tuberosity. There is no spontaneous drainage of this area Lab / Micro Data 04/24/23 05:07 04/24/23 05:07 Labs: Laboratory Results - last 24 hr 04/23/23 18:02: POC Glucose > 500 H* 04/23/23 18:30: WBC 25.5 H, RBC 4.56 L, Hgb 14.1, Hct 42.3, MCV 92.8, MCH 30.9, MCHC 33.3, RDW Std Deviation 41.2, RDW Coeff of Edgar 11.9, Plt Count 482 H, MPV 9.0, Immature Gran % (Auto) 1.100 H, Neut % (Auto) 90.5 H, Lymph % (Auto) 3.5 L, [place] % (Auto) 4.5, Eos % (Auto) 0.0, Baso % (Auto) 0.4, Absolute Neuts (auto) 23.1 H, Absolute Lymphs (auto) 0.88, Nucleated RBC % 0, Differential Comment SEE COMMENT, Platelet Estimate [facility], RBC Morphology N CHROM, Anisocytosis RARE, Macrocytosis RARE, Ovalocytes RARE, Sodium 130 L, Potassium 4.7, Chloride 103, Carbon Dioxide 6.0 L*, Anion Gap 21 H, BUN 29 H, Creatinine 1.53 H, Estim Creat Clear Calc 41.84, Est GFR (MDRD) Af Amer 60, Est GFR (MDRD) Non-Af 50 L, BUN/Creatinine Ratio 19.0, Glucose 667 H*, Calcium 9.5, Acetone Level LARGE H 04/23/23 19:40: Sodium Cancelled 04/23/23 19:40: Sodium 134 L, Potassium Cancelled 04/23/23 19:40: Potassium 4.5, Chloride Cancelled 04/23/23 19:40: Chloride 108 H, Carbon Dioxide Cancelled 04/23/23 19:40: Carbon Dioxide 6.0 L*, Anion Gap Cancelled 04/23/23 19:40: Anion Gap 20 H, BUN Cancelled 04/23/23 19:40: BUN 28 H, Creatinine Cancelled 04/23/23 19:40: Creatinine 1.38 H, Estim Creat Clear Calc Cancelled 04/23/23 19:40: Estim Creat Clear Calc 46.39, Est GFR (MDRD) Af Amer Cancelled 04/23/23 19:40: Est GFR (MDRD) Af Amer 68, Est GFR (MDRD) Non-Af Cancelled 04/23/23 19:40: Est GFR (MDRD) Non-Af 56 L, BUN/Creatinine Ratio Cancelled 04/23/23 19:40: BUN/Creatinine Ratio 20.3 H, Glucose Cancelled 04/23/23 19:40: Glucose 585 H*, Calcium Cancelled 04/23/23 19:40: Calcium 8.7, Magnesium 2.5, Procalcitonin 0.31 H 04/23/23 19:45: Urine Color Straw, Urine Clarity Clear, Urine pH 5.0, Ur Specific [place] 1.015, Urine Protein 30 H, Urine Glucose (UA) 1000 H, Urine Ketones 150 A*, Urine Occult Blood 50 H, Urine Nitrite Negative, Urine Bilirubin Negative, Urine Urobilinogen Normal, Ur Leukocyte Esterase Negative 04/23/23 20:20: Hemoglobin A1c 11.5 H, Serum Osmolality 332 H, Lactic Acid 1.5, Urine Opiates Screen NEGATIVE, Urine Methadone Screen NEGATIVE, Ur Barbiturates Screen NEGATIVE, Ur Phencyclidine Scrn NEGATIVE, Ur Amphetamines Screen NEGATIVE, MDMA (Ecstasy) Screen NEGATIVE, U Benzodiazepines Scrn NEGATIVE, Urine Cocaine Screen NEGATIVE, U Cannabinoids Screen NEGATIVE, Ur Drug Screen Comment 04/23/23 21:38: POC Glucose 360 H 04/23/23 22:44: POC Glucose 310 H 04/24/23 00:05: POC Glucose 313 H 04/24/23 00:10: S.aureus Protein A PCR NEGATIVE, MRSA (PCR) Negative 04/24/23 00:15: Sodium 140, Potassium 3.7, Chloride 118 H, Carbon Dioxide 9.0 L*, Anion Gap 13, BUN 26 H, Creatinine 1.07, Estim Creat Clear Calc 62.24, Est GFR (MDRD) Af Amer 91, Est GFR (MDRD) Non-Af 75, BUN/Creatinine Ratio 24.3 H, Glucose 339 H, Calcium 8.3 L, Troponin I High Sens 32 04/24/23 00:55: Sodium 141, Potassium 3.4 L, Chloride 118 H, Carbon Dioxide 12.0 L, Anion Gap 11, BUN 24 H, Creatinine 0.92, Estim Creat Clear Calc 72.39, Est GFR (MDRD) Af Amer 108, Est GFR (MDRD) Non-Af 90, BUN/Creatinine Ratio 26.1 H, Glucose 233 H, Calcium 8.0 L, Troponin I High Sens 39 04/24/23 01:06: POC Glucose 273 H 04/24/23 02:08: POC Glucose 244 H 04/24/23 02:50: Sodium 142, Potassium 3.5, Chloride 119 H, Carbon Dioxide 11.0 L, Anion Gap 12, BUN 24 H, Creatinine 0.97, Estim Creat Clear Calc 68.66, Est GFR (MDRD) Af Amer 102, Est GFR (MDRD) Non-Af 84, BUN/Creatinine Ratio 24.7 H, Glucose 230 H, Calcium 8.1 L 04/24/23 02:54: POC Glucose 212 H 04/24/23 04:01: POC Glucose 223 H 04/24/23 05:07: WBC 19.7 H, RBC 3.64 L, Hgb 11.0 L, Hct 32.9 L, MCV 90.4, MCH 30.2, MCHC 33.4, RDW Std Deviation 39.7, RDW Coeff of Edgar 12.0, Plt Count 370, MPV 8.8, Immature Gran % (Auto) 1.000 H, Neut % (Auto) 82.4 H, Lymph % (Auto) 9.5 L, [place] % (Auto) 6.6, Eos % (Auto) 0.2, Baso % (Auto) 0.3, Absolute Neuts (auto) 16.3 H, Absolute Lymphs (auto) 1.87, Nucleated RBC % 0, Sodium 140, Potassium 3.2 L, Chloride 118 H, Carbon Dioxide 14.0 L, Anion Gap 8, BUN 20 H, Creatinine 0.96, Estim Creat Clear Calc 69.38, Est GFR (MDRD) Af Amer 103, Est GFR (MDRD) Non-Af 85, BUN/Creatinine Ratio 20.8 H, Glucose 217 H, Calcium 8.0 L, Troponin I High Sens 37, TSH 0.82, POC Glucose 194 H 04/24/23 06:03: POC Glucose 228 H 04/24/23 06:55: Acetone Level SMALL H, POC Glucose 191 H 04/24/23 08:00: POC Glucose 147 H 04/24/23 09:06: POC Glucose 104 04/24/23 10:33: POC Glucose 119 H Micro: Microbiology 04/23/23 20:15 Mucosa - Nose SARS-CoV-2, Influenza & RSV (PCR) - Final ABG Data ABG results: ABG 04/23/23 21:33 Specimen Type ART Sample Site R Radial pH 7.14 L* Bicarbonate Actual 6.0 L Total CO2 7 Base Excess -23 L O2 Saturation 97 ABG pCO2 17.5 L* ABG pO2 108 H Jason Test Positive O2 Delivery Device Room Air Vent Mode Not entered Crit Call To/Read Back Yes Blood Gas Notified Whom Dr Goetz Blood Gas Notified Time 21:35:33 Imaging Radiology Impression Chest X-Ray 04/23/23 20:27 IMPRESSION: Normal x-ray examination of the chest. Electronically Signed: Lux Munoz MD at 20:48 EST , Soft Tissue Ultrasound 04/24/23 08:15 IMPRESSION: Distal to the wound overlying the left leg, there is a 2.1 cm x 3.1 cm x 0.8cm heterogeneous fluid collection. Drainage is recommended. Diffuse soft tissue edema. Electronically Signed: Kit Zapata MD at 10:38 EST , Charges/Coding Visit Charges Inpatient E&M: 99421 Init Hosp L2
[2023-04-24] MEDS: Vancomycin HCl 750 MG in 0.9% Normal Saline (250mL Bag) 250 ML 250 MG IV (12:15)
--- NOTE | 2023-04-24 12:27 | PRO.PCM_ITS ---
Procedure Report Date of Procedure: 04/24/23
--- NOTE | 2023-04-24 12:27 | PCM.OP.PRO ---
Procedure Report Date of Procedure: 04/24/23 Procedure: Incision and drainage (x 5) lower extremity abscesses After obtaining written consent, patient was positioned supine on via an life trainer his bed with his right knee flexed. Then the areas of the right anterior thigh, right lateral thigh, right medial thigh, right pretibial region, and left lateral lower extremity were serially anesthetized local blocks using a total volume of 20 mL of 1% lidocaine. Then, an #11 blade scalpel was used to make stab incisions in the areas of greatest fluctuance. This resulted in drainage of bloody purulence in each location. A fine hemostat was used to probe each subcutaneous wound to disrupt any loculations and make them confluent. Swabs were taken of patient's right anterior, right pretibial, and left lower extremity abscess sites to be sent for micro analysis. Each cavity was then irrigated with sterile saline. Each cavity was packed tightly with quarter inch iodoform gauze. A 4 x 4 gauze was then folded into fourths and held in place with a 4 inch Kerlix gauze which was taped over site. Patient tolerated the procedure without any apparent complication. EBL: 10 mL Procedures Integumentary 10xxx: [id number] Drainage of skin abscess
[2023-04-24 14:03] LABS: BUN 13 mg/dL (7-18); BUN/Creat Ratio 15.9 RATIO (10-20); Calcium,Total 8.3 mg/dL (8.5-10.1); Chloride 118 mmol/L (98-107); Creatinine, Serum 0.82 mg/dL (0.70-1.30); EST Glomerular Filtration Rate 102 mL/min (>60); Est Glom Filt Rate - Afr Amer 124 mL/min (>60); Estimated Creatinine Clearance 81.22 ml/min; Glucose 94 mg/dL (74-106); Potassium 3.1 mmol/L (3.5-5.1); Sodium Level 141 mmol/L (136-145)
[2023-04-24 14:04] LABS: Anion Gap 7 (5-15)
[2023-04-24] MEDS: Juven (unflavored) Packet 1 PACKET PO (16:46)
[2023-04-24] MEDS: Insulin Lispro 100 UNIT/ML INSULN.PEN SC ×2 (16:46→21:47)
[2023-04-24 20:02] LABS: Bedside Glucose 198 mg/dL (74-106)
[2023-04-24 23:18] LABS: Bedside Glucose 256 mg/dL (74-106)
[2023-04-25] MEDS: Vancomycin HCl 750 MG in 0.9% Normal Saline (250mL Bag) 250 ML 250 MG IV (01:46)
[2023-04-25 03:14] VITALS: BP 103/65; PULSE 85; RESP 16; TEMP 36.6; O2SAT 98
[2023-04-25 05:32] VITALS: BMI 23.6
[2023-04-25] MEDS: Piperacil/Tazobactam 3.375 GM in 0.9% Normal Saline (50mL MB+) 50 ML IV ×3 (06:50→21:28)
[2023-04-25 06:55] VITALS: O2SAT 95
[2023-04-25] MEDS: Insulin Lispro 100 UNIT/ML INSULN.PEN SC ×4 (06:55→21:30)
[2023-04-25 07:16] LABS: Bedside Glucose 257 mg/dL (74-106)
[2023-04-25 07:48] LABS: Absolute Lymphocyte Count 1.57 X10^3/uL (0.83-4.51); Absolute Neutrophil Count 8.9 X10^3/uL (2.0-7.7); Basophil# 0.02 X10^3/uL; Basophil% 0.2 % (0-1); Eosinophil# 0.06 X10^3/uL; Eosinophils% 0.5 % (0-5); Hematocrit 31.8 % (40-54); Hemoglobin 11.1 g/dL (13.0-16.5); Lymphocyte # 1.57 X10^3/ul (0.83-4.51); Lymphocyte % 13.6 % (19-41); Mean Corp Hgb Conc 34.9 g/dL (32-36); Mean Corpuscular Hgb 30.4 pg (27.0-32.0); Mean Corpuscular Volume 87.1 fL (80-94); Mean Platelet Vol. 8.7 fl (6.2-12.0); Monocyte# 0.88 X10^3/uL; Monocyte% 7.6 % (0-10); NRBC Flagged by Analyzer 0 % (0-5); Neutrophil # 8.93 X10^3/uL (2.7-7.7); Neutrophil % 77.7 % (47-70); Platelet Count 385 K/mm3 (150-450); RBC Distribution Width SD 38.4 fl (35.1-43.9); Red Blood Count 3.65 M/mm3 (4.6-6.2); White Blood Count 11.5 K/mm3 (4.4-11.0)
[2023-04-25] MEDS: HYDROmorphone 0.5 MG/0.5 ML SYRINGE 0.25 MG IV (08:00)
[2023-04-25] MEDS: Juven (unflavored) Packet 1 PACKET PO ×2 (08:02→17:24)
[2023-04-25] MEDS: Enoxaparin 40 MG/0.4 ML Syringe SC (08:02)
[2023-04-25] MEDS: 0.9% Saline Lock 10 ML Syringe IV (08:02)
[2023-04-25 08:11] VITALS: BP 105/64; PULSE 82; RESP 18; TEMP 37; O2SAT 93
[2023-04-25 08:21] LABS: Anion Gap 11 (5-15); BUN 7 mg/dL (7-18); BUN/Creat Ratio 12.2 RATIO (10-20); Calcium,Total 8.7 mg/dL (8.5-10.1); Chloride 109 mmol/L (98-107); Creatinine, Serum 0.58 mg/dL (0.70-1.30); EST Glomerular Filtration Rate 154 mL/min (>60); Est Glom Filt Rate - Afr Amer 186 mL/min (>60); Estimated Creatinine Clearance 114.83 ml/min; Glucose 259 mg/dL (74-106); Potassium 2.5 mmol/L (3.5-5.1); Sodium Level 139 mmol/L (136-145)
--- NOTE | 2023-04-25 08:25 | WOUNDNOTE ---
Had been in this am to see patient with Dr Ken and JAIME Mendez. patient had I&D of 5 areas to legs yesterday at bedside. 4 wounds to the right leg and 1 to the left. packing was removed. redness is greatly improved per JAIME Mendez. no purulence or odor noted. gently cleansed skin with soap and water. pat dry. repacked wounds with 1/4 iodoform gauze. covered with dry dressings and wrapped with kerlix. pt tolerated fairly well. will monitor.
--- NOTE | 2023-04-25 10:29 | PCM.PN.HOSP ---
Subjective Subjective Doing well, no issues overnight Objective Data Objective Data Vital Signs: Vital Signs Temp Pulse Resp BP Pulse Ox O2 Del Method 98.6 F 82 18 105/64 93 Room Air 04/25/23 08:11 04/25/23 08:11 04/25/23 08:11 04/25/23 08:11 04/25/23 08:11 04/25/23 08:11 Oxygen Delivery Method Room Air Weight: 138 lb 12 oz Body Mass Index (BMI) 23.6 Intake & Output: Intake and Output for Last 24 Hours 04/24/23 04/25/23 04/26/23 03:59 03:59 03:59 Intake Total 4120.54 / 4120.54 2797.66 / 2797.66 Output Total 600 / 600 Balance 3520.54 / 3520.54 2797.66 / 2797.66 Lab / Micro Data 04/25/23 07:10 04/25/23 07:10 Labs: Laboratory Results - last 24 hr 04/24/23 08:00: POC Glucose 147 H 04/24/23 09:06: POC Glucose 104 04/24/23 09:10: Sodium 141 04/24/23 09:10: Sodium Cancelled, Potassium 3.1 L 04/24/23 09:10: Potassium Cancelled, Chloride 118 H 04/24/23 09:10: Chloride Cancelled, Carbon Dioxide 16.0 L 04/24/23 09:10: Carbon Dioxide Cancelled, Anion Gap 7 04/24/23 09:10: Anion Gap Cancelled, BUN 13 04/24/23 09:10: BUN Cancelled, Creatinine 0.82 04/24/23 09:10: Creatinine Cancelled, Estim Creat Clear Calc 81.22 04/24/23 09:10: Estim Creat Clear Calc Cancelled, Est GFR (MDRD) Af Amer 124 04/24/23 09:10: Est GFR (MDRD) Af Amer Cancelled, Est GFR (MDRD) Non-Af 102 04/24/23 09:10: Est GFR (MDRD) Non-Af Cancelled, BUN/Creatinine Ratio 15.9 04/24/23 09:10: BUN/Creatinine Ratio Cancelled, Glucose 94 04/24/23 09:10: Glucose Cancelled, Calcium 8.3 L 04/24/23 09:10: Calcium Cancelled 04/24/23 10:33: POC Glucose 119 H 04/24/23 15:55: POC Glucose 198 H 04/24/23 21:39: POC Glucose 256 H 04/25/23 06:51: POC Glucose 257 H 04/25/23 07:10: WBC 11.5 H, RBC 3.65 L, Hgb 11.1 L, Hct 31.8 L, MCV 87.1, MCH 30.4, MCHC 34.9, RDW Std Deviation 38.4, RDW Coeff of Edgar 12.0, Plt Count 385, MPV 8.7, Immature Gran % (Auto) 0.400, Neut % (Auto) 77.7 H, Lymph % (Auto) 13.6 L, [place] % (Auto) 7.6, Eos % (Auto) 0.5, Baso % (Auto) 0.2, Absolute Neuts (auto) 8.9 H, Absolute Lymphs (auto) 1.57, Nucleated RBC % 0, Sodium 139, Potassium 2.5 L*, Chloride 109 H, Carbon Dioxide 19.0 L, Anion Gap 11, BUN 7, Creatinine 0.58 L, Estim Creat Clear Calc 114.83, Est GFR (MDRD) Af Amer 186, Est GFR (MDRD) Non-Af 154, BUN/Creatinine Ratio 12.2, Glucose 259 H, Calcium 8.7 Micro: Microbiology 04/24/23 11:15 Wound Abcess - Leg, Left Gram Stain - Final 04/24/23 11:15 Wound Abcess - Leg, Right Gram Stain - Final 04/24/23 11:15 Wound Abcess - Leg, Right Gram Stain - Final 04/23/23 20:15 Mucosa - Nose SARS-CoV-2, Influenza & RSV (PCR) - Final Radiography Diagnostic Testing: Radiology Impression Soft Tissue Ultrasound 04/24/23 08:15 IMPRESSION: Distal to the wound overlying the left leg, there is a 2.1 cm x 3.1 cm x 0.8cm heterogeneous fluid collection. Drainage is recommended. Diffuse soft tissue edema. Electronically Signed: Kit Zapata MD at 10:38 EST , Physical Exam Narrative General: Alert, Oriented x3, Cooperative, No apparent distress HEENT: Atraumatic, PERRLA, EOMI, Normocephalic Oral: Moist Mucosa Neck: Supple, No JVD Lungs: Diminished, Normal air movement, No rhonchi, No wheeze, No rales Cardiovascular: Regular rate, Regular Rhythm, Normal S1, Normal S2, No murmurs Abdomen: Soft, Non Tender, Non-Distended, No Hepato-splenomegaly Extremities: No edema, Capillary Refill Less than 3 Seconds Skin: Lower extremity cellulitis surrounding possible abscess Musculoskeletal: No Tenderness to Palpation of Joints or Extremities Neurological: No focal neurological deficits, Motor Exam 5/5 strength throughout, Sensory exam intact to light touch and pain Psych/Mental Status: Normal Affect, Appropriate Assessment & Plan Assessment/Plan (1) DKA (diabetic ketoacidoses): QUALIFIERS: Diabetes mellitus type: type 2 Diabetes mellitus complication detail: without coma Qualified Code(s): E11.10 - Type 2 diabetes mellitus with ketoacidosis without coma (2) Bilateral cellulitis of lower leg: (3) AZRA (acute kidney injury): PLAN: Plan 1. DKA in the setting of uncontrolled type 2 diabetes with AZRA with hypokalemia ? Continue with the DKA protocol, his gap is closed his bicarb is still 14 which is improved from admission ? Continue with long-acting insulin and sliding scale insulin ? Will find DKA and type 2 diabetes instructions in Slovak if possible for discharge ? Continue with IV fluids ? On admission his creatinine was 1.53 and currently at 0.96 consistent with AZRA 2. Lower extremity cellulitis with possible abscess ? This is likely contributing to his DKA ? Continue with IV antibiotics, MRSA screen is negative but Gram stain's are showing gram-positive cocci in clusters ? Will await cultures ? Appreciate general surgery's assistance DVT: Betsynox Charges/Coding Visit Charges Inpatient E&M: 95621 Subs Hosp L2
--- NOTE | 2023-04-25 10:42 | NURSING ---
pt speaks irish only - using translation to help with communication
--- NOTE | 2023-04-25 10:48 | PCM.PN.SRG ---
Subjective Subjective Patient seen and examined during AM rounds he reports that he has minimal pain from his legs. He was transferred from the ICU yesterday evening. Objective Data Objective Data Vital Signs: Vital Signs Temp Pulse Resp BP Pulse Ox O2 Del Method 98.6 F 82 18 105/64 93 Room Air 04/25/23 08:11 04/25/23 08:11 04/25/23 08:11 04/25/23 08:11 04/25/23 08:11 04/25/23 08:11 Oxygen Delivery Method Room Air Weight: 138 lb 12 oz Body Mass Index (BMI) 23.6 Intake & Output: Intake and Output for Last 24 Hours 04/23/23 04/24/23 04/25/23 23:59 23:59 23:59 Intake Total 2115.69 / 2117.42 4487.51 / 4487.51 315 / 315 Output Total 600 / 600 Balance 2115.69 / 1517.42 3887.51 / 3887.51 315 / 315 Lab / Micro Data 04/25/23 07:10 04/25/23 07:10 Labs: Laboratory Results - last 24 hr 04/24/23 08:00: POC Glucose 147 H 04/24/23 09:06: POC Glucose 104 04/24/23 09:10: Sodium 141 04/24/23 09:10: Sodium Cancelled, Potassium 3.1 L 04/24/23 09:10: Potassium Cancelled, Chloride 118 H 04/24/23 09:10: Chloride Cancelled, Carbon Dioxide 16.0 L 04/24/23 09:10: Carbon Dioxide Cancelled, Anion Gap 7 04/24/23 09:10: Anion Gap Cancelled, BUN 13 04/24/23 09:10: BUN Cancelled, Creatinine 0.82 04/24/23 09:10: Creatinine Cancelled, Estim Creat Clear Calc 81.22 04/24/23 09:10: Estim Creat Clear Calc Cancelled, Est GFR (MDRD) Af Amer 124 04/24/23 09:10: Est GFR (MDRD) Af Amer Cancelled, Est GFR (MDRD) Non-Af 102 04/24/23 09:10: Est GFR (MDRD) Non-Af Cancelled, BUN/Creatinine Ratio 15.9 04/24/23 09:10: BUN/Creatinine Ratio Cancelled, Glucose 94 04/24/23 09:10: Glucose Cancelled, Calcium 8.3 L 04/24/23 09:10: Calcium Cancelled 04/24/23 10:33: POC Glucose 119 H 04/24/23 15:55: POC Glucose 198 H 04/24/23 21:39: POC Glucose 256 H 04/25/23 06:51: POC Glucose 257 H 04/25/23 07:10: WBC 11.5 H, RBC 3.65 L, Hgb 11.1 L, Hct 31.8 L, MCV 87.1, MCH 30.4, MCHC 34.9, RDW Std Deviation 38.4, RDW Coeff of Edgar 12.0, Plt Count 385, MPV 8.7, Immature Gran % (Auto) 0.400, Neut % (Auto) 77.7 H, Lymph % (Auto) 13.6 L, [place] % (Auto) 7.6, Eos % (Auto) 0.5, Baso % (Auto) 0.2, Absolute Neuts (auto) 8.9 H, Absolute Lymphs (auto) 1.57, Nucleated RBC % 0, Sodium 139, Potassium 2.5 L*, Chloride 109 H, Carbon Dioxide 19.0 L, Anion Gap 11, BUN 7, Creatinine 0.58 L, Estim Creat Clear Calc 114.83, Est GFR (MDRD) Af Amer 186, Est GFR (MDRD) Non-Af 154, BUN/Creatinine Ratio 12.2, Glucose 259 H, Calcium 8.7 Micro: Microbiology 04/24/23 11:15 Wound Abcess - Leg, Left Gram Stain - Final 04/24/23 11:15 Wound Abcess - Leg, Left Wound Culture - Preliminary Staphylococcus aureus 04/24/23 11:15 Wound Abcess - Leg, Right Gram Stain - Final 04/24/23 11:15 Wound Abcess - Leg, Right Wound Culture - Preliminary Staphylococcus aureus 04/24/23 11:15 Wound Abcess - Leg, Right Gram Stain - Final 04/24/23 11:15 Wound Abcess - Leg, Right Wound Culture - Preliminary Staphylococcus aureus 04/23/23 20:15 Mucosa - Nose SARS-CoV-2, Influenza & RSV (PCR) - Final Physical Exam Const oriented x3 and no apparent distress Extremity Extremity Narrative: Significant improvement at all sites of patient's prior I&D from yesterday but with particular improvements in his right anterior tibial region and left lateral sites. Drainage at this point is serosanguineous and some max sanguinous oozing from patient's lateral/proximal thigh. There is some persistent erythema to patient's anterior proximal thigh on the right. Assessment & Plan Assessment/Plan (1) Cutaneous abscess of extremity: PLAN: Patient has postprocedure day 1 from I&D of 4 small abscesses of the right lower extremity and 1 larger abscess of the left lower extremity. All sites are exhibiting improvements in the inflammatory picture. There does not appear to be any residual abscess loculations within the sites. Preliminary micro results show Gram stains with gram-positive cocci in clusters, however, PCR was negative for MRSA. Broad-spectrum antimicrobials are continued with Vanco and Zosyn. Will follow-up final cultures. In the interim recommend daily packing and will transition to plain packing strip for future dressing changes. I have also discussed patient's hyperglycemia with hospitalist service and we will look to try to tighten his blood sugar control to improve his immune response. Charges/Coding Visit Charges Inpatient E&M: 43478 Subs Hosp L2
[2023-04-25] MEDS: Potassium Chloride Oral Tablet 20 MEQ 60 MEQ PO (11:22)
[2023-04-25] MEDS: Insulin Glargine-YFGN 100 UNIT/ML Pen 10 UNIT SC (11:29)
[2023-04-25 12:15] LABS: Bedside Glucose 355 mg/dL (74-106)
[2023-04-25 12:55] LABS: Vancomycin, Trough Level 6.2 ug/mL (5.0-15.0)
[2023-04-25] MEDS: Vancomycin IV 1,000 MG/200 ML BAG 200 MG IV ×2 (13:32→20:14)
--- NOTE | 2023-04-25 13:46 | PCM.RX.CS ---
Consult Antibiotic Management Pharmacy has been consulted to manage selected antibiotic: Vancomycin Type of Intervention Type of Consult: Follow-up Suspected Infection Suspected Infection: Skin/Soft tissue Prior Doses of Antibiotics Prior Doses of Antibiotics Received/Current Regimen: Currently on 750mg iv q12h. Labs Labs: Sodium 139 mmol/L (136-145) 04/25/23 07:10 Potassium 2.5 mmol/L (3.5-5.1) L* 04/25/23 07:10 Chloride 109 mmol/L (98-107) H 04/25/23 07:10 Carbon Dioxide 19.0 mmol/L (21.0-32.0) L 04/25/23 07:10 Anion Gap 11 (5-15) 04/25/23 07:10 BUN 7 mg/dL (7-18) 04/25/23 07:10 Creatinine 0.58 mg/dL (0.70-1.30) L 04/25/23 07:10 Est GFR (MDRD) Af Amer 186 mL/min (>60) 04/25/23 07:10 Est GFR (MDRD) Non-Af 154 mL/min (>60) 04/25/23 07:10 BUN/Creatinine Ratio 12.2 RATIO (10-20) 04/25/23 07:10 Glucose 259 mg/dL (74-106) H 04/25/23 07:10 Vancomycin Trough 6.2 ug/mL (5.0-15.0) 04/25/23 11:36 Microbiology Microbiology: Microbiology 04/24/23 11:15 Wound Abcess - Leg, Left Gram Stain - Final 04/24/23 11:15 Wound Abcess - Leg, Left Wound Culture - Preliminary Staphylococcus aureus 04/24/23 11:15 Wound Abcess - Leg, Right Gram Stain - Final 04/24/23 11:15 Wound Abcess - Leg, Right Wound Culture - Preliminary Staphylococcus aureus 04/24/23 11:15 Wound Abcess - Leg, Right Gram Stain - Final 04/24/23 11:15 Wound Abcess - Leg, Right Wound Culture - Preliminary Staphylococcus aureus 04/23/23 20:15 Mucosa - Nose SARS-CoV-2, Influenza & RSV (PCR) - Final Dosing Weight Weight used for dosin kg Estimated Creatinine Clearance Estimated Creatinine Clearance: >120ml/min Pharmacy Plan for Drug Dosing Pharmacy Plan for Drug Dosing: Trough today 6.2 and below goal range of 15-20 mcg/ml. Renal function improved with Cr 0.58 (previous 0.96 on 04.24.23). Recommend changing dose to 1000mg iv q8h with new trough before 4th dose. Pharmacy Service will continue to monitor and adjust dosing as required. Follow-Up Labs Follow-Up Labs: Trough: Vancomycin (04.26.23 @1930)
--- NOTE | 2023-04-25 13:51 | CASEMGMT ---
Social Work SW sent an email to [facility] requesting they follow up w/the pt for self pay status. KWAN Arciniega
[2023-04-25 15:08] VITALS: BP 107/59; PULSE 98; RESP 18; TEMP 36.9; O2SAT 96
[2023-04-25 17:47] LABS: Bedside Glucose 274 mg/dL (74-106)
[2023-04-25] MEDS: Acetaminophen 325 MG Tablet 650 MG PO (21:27)
[2023-04-25 21:52] VITALS: BP 105/61; PULSE 87; RESP 16; TEMP 37.8; O2SAT 97
[2023-04-25 22:08] LABS: Bedside Glucose 308 mg/dL (74-106)
[2023-04-26 03:00] VITALS: BP 100/66; PULSE 76; RESP 16; TEMP 36.8; O2SAT 96
[2023-04-26 03:29] VITALS: BMI 23.6
[2023-04-26] MEDS: Vancomycin IV 1,000 MG/200 ML BAG 200 MG IV (04:16)
[2023-04-26] MEDS: Piperacil/Tazobactam 3.375 GM in 0.9% Normal Saline (50mL MB+) 50 ML IV (05:57)
[2023-04-26] MEDS: Insulin Lispro 100 UNIT/ML INSULN.PEN SC ×4 (06:26→20:22)
[2023-04-26 06:48] LABS: Bedside Glucose 254 mg/dL (74-106)
[2023-04-26 07:21] LABS: Absolute Lymphocyte Count 1.68 X10^3/uL (0.83-4.51); Absolute Neutrophil Count 5.5 X10^3/uL (2.0-7.7); Basophil# 0.03 X10^3/uL; Basophil% 0.4 % (0-1); Eosinophil# 0.09 X10^3/uL; Eosinophils% 1.1 % (0-5); Hematocrit 31.7 % (40-54); Hemoglobin 11.4 g/dL (13.0-16.5); Lymphocyte # 1.68 X10^3/ul (0.83-4.51); Mean Corpuscular Hgb 31.1 pg (27.0-32.0); Mean Corpuscular Volume 86.6 fL (80-94); Mean Platelet Vol. 8.7 fl (6.2-12.0); Monocyte# 0.66 X10^3/uL; Monocyte% 8.3 % (0-10); NRBC Flagged by Analyzer 0 % (0-5); Neutrophil # 5.49 X10^3/uL (2.7-7.7); Neutrophil % 68.6 % (47-70); Platelet Count 406 K/mm3 (150-450); RBC Distribution Width CV 11.9 % (11.6-14.6); RBC Distribution Width SD 37.6 fl (35.1-43.9); Red Blood Count 3.66 M/mm3 (4.6-6.2)
[2023-04-26 08:15] LABS: Anion Gap 8 (5-15); BUN 6 mg/dL (7-18); Calcium,Total 8.8 mg/dL (8.5-10.1); Chloride 105 mmol/L (98-107); Creatinine, Serum 0.55 mg/dL (0.70-1.30); EST Glomerular Filtration Rate 163 mL/min (>60); Est Glom Filt Rate - Afr Amer 198 mL/min (>60); Estimated Creatinine Clearance 121.09 ml/min; Glucose 272 mg/dL (74-106); Magnesium 2.3 mg/dL (1.6-2.6); Phosphorus 1.1 mg/dL (2.5-4.9); Potassium 2.5 mmol/L (3.5-5.1); Sodium Level 139 mmol/L (136-145)
[2023-04-26 08:29] VITALS: BP 97/65; PULSE 79; RESP 16; TEMP 36.7; O2SAT 98
[2023-04-26] MEDS: Juven (unflavored) Packet 1 PACKET PO ×2 (09:21→16:49)
[2023-04-26] MEDS: Potassium Phosphate 40 MM in 0.9% Normal Saline (500mL Bag) 500 ML 62.5 MM IV ×2 (09:21→22:43)
[2023-04-26] MEDS: Enoxaparin 40 MG/0.4 ML Syringe SC (09:24)
[2023-04-26] MEDS: Insulin Glargine-YFGN 100 UNIT/ML Pen 10 UNIT SC (09:25)
[2023-04-26] MEDS: Insulin Glargine-YFGN 100 UNIT/ML Pen 20 UNIT SC (10:56)
[2023-04-26] MEDS: Insulin Lispro 100 UNIT/ML INSULN.PEN 10 UNIT SC ×2 (10:57→15:36)
[2023-04-26 11:30] VITALS: BP 112/66; PULSE 96; RESP 16; TEMP 37.1; O2SAT 94
[2023-04-26 11:40] LABS: Bedside Glucose 436 mg/dL (74-106)
--- NOTE | 2023-04-26 13:37 | PCM.PN.SRG ---
Subjective Subjective Patient seen and examined during AM rounds. He reports that he is having less pain from his legs. Nursing suggest that patient's state may be protracted over ongoing difficulties with his potassium levels. Objective Data Objective Data Vital Signs: Vital Signs Temp Pulse Resp BP Pulse Ox O2 Del Method 98.7 F 96 16 112/66 94 Room Air 04/26/23 11:30 04/26/23 11:30 04/26/23 11:30 04/26/23 11:30 04/26/23 11:30 04/26/23 13:12 Oxygen Delivery Method Room Air Weight: 138 lb 10.732 oz Body Mass Index (BMI) 23.6 Intake & Output: Intake and Output for Last 24 Hours 04/24/23 04/25/23 04/26/23 23:59 23:59 23:59 Intake Total 4487.51 / 4487.51 2415 / 2415 1143.75 / 1143.75 Output Total 600 / 600 Balance 3887.51 / 3887.51 2415 / 2415 1143.75 / 1143.75 Lab / Micro Data 04/26/23 06:50 04/26/23 06:50 Labs: Laboratory Results - last 24 hr 04/25/23 17:22: POC Glucose 274 H 04/25/23 21:29: POC Glucose 308 H 04/26/23 06:26: POC Glucose 254 H 04/26/23 06:50: WBC 8.0, RBC 3.66 L, Hgb 11.4 L, Hct 31.7 L, MCV 86.6, MCH 31.1, MCHC 36.0, RDW Std Deviation 37.6, RDW Coeff of Edgar 11.9, Plt Count 406, MPV 8.7, Immature Gran % (Auto) 0.600, Neut % (Auto) 68.6, Lymph % (Auto) 21.0, [place] % (Auto) 8.3, Eos % (Auto) 1.1, Baso % (Auto) 0.4, Absolute Neuts (auto) 5.5, Absolute Lymphs (auto) 1.68, Nucleated RBC % 0, Sodium 139, Potassium 2.5 L*, Chloride 105, Carbon Dioxide 26.0, Anion Gap 8, BUN 6 L, Creatinine 0.55 L, Estim Creat Clear Calc 121.09, Est GFR (MDRD) Af Amer 198, Est GFR (MDRD) Non-Af 163, BUN/Creatinine Ratio 11.0, Glucose 272 H, Calcium 8.8, Phosphorus 1.1 L*, Magnesium 2.3 04/26/23 10:54: POC Glucose 436 H Micro: Microbiology 04/23/23 19:30 Blood Culture (Wb) - Left Wrist Blood Culture - Preliminary No growth in 48 hours. 04/23/23 19:40 Blood Culture (Wb) - Anticubital Right Blood Culture - Preliminary No growth in 48 hours. 04/24/23 11:15 Wound Abcess - Leg, Right Gram Stain - Final 04/24/23 11:15 Wound Abcess - Leg, Right Wound Culture - Preliminary Staphylococcus aureus Streptococcus group B 04/24/23 11:15 Wound Abcess - Leg, Right Gram Stain - Final 04/24/23 11:15 Wound Abcess - Leg, Right Wound Culture - Final Staphylococcus aureus 04/24/23 11:15 Wound Abcess - Leg, Left Gram Stain - Final 04/24/23 11:15 Wound Abcess - Leg, Left Wound Culture - Final Staphylococcus aureus 04/23/23 20:15 Mucosa - Nose SARS-CoV-2, Influenza & RSV (PCR) - Final Physical Exam Const oriented x3 and no apparent distress Extremity Extremity Narrative: Further improvement at all sites of patient's prior I&D but there is persistent purulence showing and patient's left lower extremity wound. Otherwise drainage remains serosanguineous. Assessment & Plan Assessment/Plan (1) Cutaneous abscess of extremity: PLAN: Patient has postprocedure day 2 from I&D of 4 small abscesses of the right lower extremity and 1 larger abscess of the left lower extremity. All sites are exhibiting improvements in the inflammatory picture. There does not appear to be any residual abscess loculations within the sites. Micro shows growth of methicillin sensitive Staph aureus. Patient transition to Keflex. I have asked nursing to get patient in the shower and allow the shower water to irrigate the wounds before repacking later today. Once again, I discussed patient's hyperglycemia with hospitalist service and we will look to try to tighten his blood sugar control to improve his immune response. Going forward recommend daily packing of wounds with plain packing strip following showering. Charges/Coding Visit Charges Inpatient E&M: 01668 Subs Hosp L2
[2023-04-26] MEDS: Cephalexin 500 MG Capsule PO ×2 (13:43→20:18)
--- NOTE | 2023-04-26 14:16 | WOUNDNOTE ---
Pt had taken a shower. removed the packing and showed the son-in-law how to pack the wounds. covered with dry dressings and wrapped with shanti. pt tolerated well. pt hoping to be discharged home soon.
[2023-04-26 14:45] VITALS: BP 111/77; PULSE 92; RESP 16; TEMP 36.5; O2SAT 96
[2023-04-26 15:55] LABS: Bedside Glucose 264 mg/dL (74-106)
--- NOTE | 2023-04-26 16:03 | PCM.PN.HOSP ---
Subjective Subjective Doing well, no issues overnight. Blood sugar still on the high side with an A1c over 11 Objective Data Objective Data Vital Signs: Vital Signs Temp Pulse Resp BP Pulse Ox O2 Del Method 97.7 F L 92 16 111/77 96 Room Air 04/26/23 14:45 04/26/23 14:45 04/26/23 14:45 04/26/23 14:45 04/26/23 14:45 04/26/23 14:45 Oxygen Delivery Method Room Air Weight: 138 lb 10.732 oz Body Mass Index (BMI) 23.6 Intake & Output: Intake and Output for Last 24 Hours 04/25/23 04/26/23 04/27/23 03:59 03:59 03:59 Intake Total 2797.66 / 2797.66 2150 / 2150 1093.75 / 1093.75 Balance 2797.66 / 2797.66 2150 / 2150 1093.75 / 1093.75 Lab / Micro Data 04/26/23 06:50 04/26/23 06:50 Labs: Laboratory Results - last 24 hr 04/25/23 17:22: POC Glucose 274 H 04/25/23 21:29: POC Glucose 308 H 04/26/23 06:26: POC Glucose 254 H 04/26/23 06:50: WBC 8.0, RBC 3.66 L, Hgb 11.4 L, Hct 31.7 L, MCV 86.6, MCH 31.1, MCHC 36.0, RDW Std Deviation 37.6, RDW Coeff of Edgar 11.9, Plt Count 406, MPV 8.7, Immature Gran % (Auto) 0.600, Neut % (Auto) 68.6, Lymph % (Auto) 21.0, [place] % (Auto) 8.3, Eos % (Auto) 1.1, Baso % (Auto) 0.4, Absolute Neuts (auto) 5.5, Absolute Lymphs (auto) 1.68, Nucleated RBC % 0, Sodium 139, Potassium 2.5 L*, Chloride 105, Carbon Dioxide 26.0, Anion Gap 8, BUN 6 L, Creatinine 0.55 L, Estim Creat Clear Calc 121.09, Est GFR (MDRD) Af Amer 198, Est GFR (MDRD) Non-Af 163, BUN/Creatinine Ratio 11.0, Glucose 272 H, Calcium 8.8, Phosphorus 1.1 L*, Magnesium 2.3 04/26/23 10:54: POC Glucose 436 H 04/26/23 15:35: POC Glucose 264 H Micro: Microbiology 04/23/23 19:30 Blood Culture (Wb) - Left Wrist Blood Culture - Preliminary No growth in 48 hours. 04/23/23 19:40 Blood Culture (Wb) - Anticubital Right Blood Culture - Preliminary No growth in 48 hours. 04/24/23 11:15 Wound Abcess - Leg, Right Gram Stain - Final 04/24/23 11:15 Wound Abcess - Leg, Right Wound Culture - Preliminary Staphylococcus aureus Streptococcus group B 04/24/23 11:15 Wound Abcess - Leg, Right Gram Stain - Final 04/24/23 11:15 Wound Abcess - Leg, Right Wound Culture - Final Staphylococcus aureus 04/24/23 11:15 Wound Abcess - Leg, Left Gram Stain - Final 04/24/23 11:15 Wound Abcess - Leg, Left Wound Culture - Final Staphylococcus aureus 04/23/23 20:15 Mucosa - Nose SARS-CoV-2, Influenza & RSV (PCR) - Final Physical Exam Narrative General: Alert, Oriented x3, Cooperative, No apparent distress HEENT: Atraumatic, PERRLA, EOMI, Normocephalic Oral: Moist Mucosa Neck: Supple, No JVD Lungs: Diminished, Normal air movement, No rhonchi, No wheeze, No rales Cardiovascular: Regular rate, Regular Rhythm, Normal S1, Normal S2, No murmurs Abdomen: Soft, Non Tender, Non-Distended, No Hepato-splenomegaly Extremities: No edema, Capillary Refill Less than 3 Seconds Skin: Lower extremity cellulitis with abscess status post I&D, dressings intact Musculoskeletal: No Tenderness to Palpation of Joints or Extremities Neurological: No focal neurological deficits, Motor Exam 5/5 strength throughout, Sensory exam intact to light touch and pain Psych/Mental Status: Normal Affect, Appropriate Assessment & Plan Assessment/Plan (1) DKA (diabetic ketoacidoses): QUALIFIERS: Diabetes mellitus type: type 2 Diabetes mellitus complication detail: without coma Qualified Code(s): E11.10 - Type 2 diabetes mellitus with ketoacidosis without coma (2) Bilateral cellulitis of lower leg: (3) AZRA (acute kidney injury): PLAN: Plan 1. DKA in the setting of uncontrolled type 2 diabetes with AZRA with hypokalemia ? Continue with the DKA protocol, his gap is closed his bicarb is still 14 which is improved from admission ? Continue with long-acting insulin and sliding scale insulin ? Will find DKA and type 2 diabetes instructions in [place]ic if possible for discharge ? He has significantly low phosphorus today, this was replaced we will recheck this evening around 8 PM and replace further if necessary ? On admission his creatinine was 1.53 and currently at 0.96 consistent with AZRA 2. Lower extremity cellulitis with abscess due to MSSA and group B strep ? This is likely contributing to his DKA ? Will transition to p.o. Keflex 3 times daily as cultures demonstrated MSSA and group B strep ? Appreciate general surgery's assistance DVT: Gisselle Charges/Coding Visit Charges Inpatient E&M: 58231 Subs Hosp L2
--- NOTE | 2023-04-26 17:20 | CASEMGMT ---
Social Work Pt was assessed by [facility] for Medicaid eligibility. Pt resides in [place] and is in the area for work. Local resources for financial assistance not provided as they are not applicable to pt. BRONSON Lindquist
[2023-04-26] MEDS: Acetaminophen 325 MG Tablet 650 MG PO (20:18)
[2023-04-26 20:33] VITALS: BP 114/66; PULSE 89; RESP 16; TEMP 36.9; O2SAT 97
[2023-04-26 20:49] LABS: Bedside Glucose 257 mg/dL (74-106)
[2023-04-26 20:53] LABS: Anion Gap 3 (5-15); BUN 14 mg/dL (7-18); BUN/Creat Ratio 18.7 RATIO (10-20); Calcium,Total 9.1 mg/dL (8.5-10.1); Chloride 104 mmol/L (98-107); Creatinine, Serum 0.75 mg/dL (0.70-1.30); EST Glomerular Filtration Rate 114 mL/min (>60); Est Glom Filt Rate - Afr Amer 138 mL/min (>60); Glucose 260 mg/dL (74-106); Phosphorus 1.7 mg/dL (2.5-4.9); Potassium 2.8 mmol/L (3.5-5.1); Sodium Level 138 mmol/L (136-145)
[2023-04-26] MEDS: 0.9% Saline Lock 10 ML Syringe IV (22:44)
[2023-04-26] MEDS: Potassium Chloride Oral Tablet 20 MEQ 60 MEQ PO (22:44)
[2023-04-27 04:32] VITALS: BMI 23.6
[2023-04-27] MEDS: Cephalexin 500 MG Capsule PO ×2 (06:01→12:01)
[2023-04-27 06:11] VITALS: BP 104/71; PULSE 76; RESP 16; TEMP 36.6; O2SAT 97
[2023-04-27 07:05] LABS: Anion Gap 5 (5-15); BUN 7 mg/dL (7-18); BUN/Creat Ratio 12.3 RATIO (10-20); Calcium,Total 8.9 mg/dL (8.5-10.1); Chloride 109 mmol/L (98-107); Creatinine, Serum 0.57 mg/dL (0.70-1.30); EST Glomerular Filtration Rate 156 mL/min (>60); Est Glom Filt Rate - Afr Amer 189 mL/min (>60); Estimated Creatinine Clearance 116.84 ml/min; Glucose 267 mg/dL (74-106); Phosphorus 3.3 mg/dL (2.5-4.9); Potassium 3.5 mmol/L (3.5-5.1); Sodium Level 141 mmol/L (136-145)
--- NOTE | 2023-04-27 07:18 | PCM.DC ---
Discharge Instructions Diet Discharge Diet: Carb Control Diet Activity Discharge Activity: Return to Normal Activity Dressing / Incision Call your doctor if you observe: Fever of 101 or Higher, Shortness of breath, Dizziness, Fainting spells, Swelling in the ankles, Chest pain and Increased palpitations (irregular heartbeat) Follow Up Care Test Results: Test results from this visit will be discussed in further detail at your follow-up appointment, if applicable. 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
[2023-04-27] MEDS: Insulin Lispro 100 UNIT/ML INSULN.PEN 10 UNIT SC ×2 (08:06→12:01)
[2023-04-27] MEDS: Juven (unflavored) Packet 1 PACKET PO (08:06)
[2023-04-27] MEDS: Insulin Lispro 100 UNIT/ML INSULN.PEN SC ×2 (08:06→12:00)
[2023-04-27 08:22] VITALS: BP 118/72; PULSE 84; RESP 16; TEMP 37; O2SAT 99
[2023-04-27 08:28] LABS: Bedside Glucose 261 mg/dL (74-106)
[2023-04-27] MEDS: Insulin Glargine-YFGN 100 UNIT/ML Pen 20 UNIT SC (10:13)
[2023-04-27] MEDS: Enoxaparin 40 MG/0.4 ML Syringe SC (10:14)
--- NOTE | 2023-04-27 10:17 | CASEMGMT ---
RN SALINAS F/U: This RN CM met with pt face to face with pt's RN to discuss discharge needs. Pt states his daughter will be coming to the hospital to pick him up and take him back to [place]. She will be able to assist him with dressing changes. Discussed discharge medications including antibiotic, insulin pen and insulin needles. Per [facility], these total $587.33. Pt states he is unable to afford this and will wait until he gets back to [place] to purchase his medications. Pt agreeable to the [facility] Rx Assist program. Intervention completed and sent to the [facility]. Dressing supplies to be sent home with pt. Pt's RN will educate daughter and pt on dressing changes and meds prior to DC. Pt ambulating independent in the room. No additional needs identified. DC Plan: Home with assist from daughter and Rx assist for medications. Cody Arzate RN [facility]
[2023-04-27 11:57] LABS: Bedside Glucose 298 mg/dL (74-106)
--- NOTE | 2023-04-27 13:18 | PCM.DC.SUM ---
Providers Date of Admission: 04/23/23 Primary Care Physician: Milagros Primary Care Phys Consultations 04/23/23 22:41 Consult: General Surgery Routine Consulting Provider: Mohan Ken Reason for Consult: LE Cellulitis with suspected abcesses. EMERGENT Consult: No MD Notified: Yes Date Notified: 04/24/23 Time Notified: 07:28 Method of Notification: Text 04/25/23 08:27 Consult: Onc/Wound/clinical project leader Routine Comment: Reason for Consult:: bilateral legs Reason For Visit: DKA AND LE CELLULITIS WITH ABSCESSES Diagnosis Discharge Diagnosis (1) Cutaneous abscess of extremity: Status: Acute Code(s): L02.419 - Cutaneous abscess of limb, unspecified Medications at Discharge Home Medications TRAYENTA 1 tab PO BID DIABETES 04/23/23 cephalexin 500 mg capsule 500 mg PO Q8 6 days #18 caps 04/27/23 insulin admin supplies #1 ea 04/27/23 insulin glargine-yfgn 100 unit/mL (3 mL) subcutaneous pen 30 unit (0.3 mL) subcut DAILY 30 days #9 mL 04/27/23 Hospital Course Operations None Procedures - (I&D) Summary of Care Provided Minutes Spent on Discharge: 35 Hospital Course: Per HPI: ALEE CAMACHO, is a 58 M with a past medical history of DM-2; of unknown control who presents to [facility] ER complaining of hyperglycemia and sores on his legs. Mr. Camacho does not speak Pashto so information was gathered from chart, medical staff and computer. According to the records he is a chronic diabetic and has been prescribed Tryenta from [place] and he then noted that his blood glucose has been persistently elevated for the past 5 days. He was apparently told to take it once a day or twice a day if his blood glucose was elevated. He informed the ER that he still has the medication and has no run out of it. He admits to excessive thirst, excessive urination and blurry vision along with worsening sores on both of his legs with surrounding erythema. He denies associated fever, chills, nausea, vomiting, diarrhea, constipation or abdominal pain. In the ER he was diagnosed with DKA; evidenced by a blood glucose of 667 mg/dL present on admission and increased anion-gap metabolic acidosis with a HCO3 of 6 and large serum acetone complicated by clinical evidence of cellulitis of his legs with leukocytosis of 25.5 present on admission compounded by suspected AZRA due to dehydration with elevated creatinine of 1.53 mg/dL and BUN of 29 mg/dL present on admission (with no previous labs available for comparison) and he was then admitted to the ICU for ongoing care for a stay that is expected to be greater than 48 hours. Hospital Course: 1. DKA in the setting of uncontrolled type 2 diabetes with an AZRA and hypokalemia and hypophosphatemia/lower extremity cellulitis with abscess due to MSSA and group B strep?58-year-old male from [place] presented to the hospital with hyperglycemia and lower extremity abscess. Initially had to be in the ICU with an insulin drip and his DKA resolved within 24 hours. He was transition to insulin and was ultimately discharged on 30 units of Lantus daily. He does have a glucometer at home and states that he knows how to check his blood sugar. Unfortunately his primary care doctor is in [place] and he does plan to return to [place] within the next couple of weeks, his family mostly lives in [place] though he did have a son-in-law here that facilitated communication. He will need to resume his Tradjenta as well on discharge, his A1c while here was 11.5% so he will likely need to be on insulin in [place] as well. We were able to improve his potassium and his phosphorus and these were normal on the day of discharge. As for his abscess, surgery was able to I&D and wound care instructions were provided to both the patient and his son-in-law. This was likely what initiated his DKA. It was found that the organisms were MSSA and group B strep and he had significant improvement after I&D. Will continue with Keflex 500 mg p.o. 3 times daily for 6 more days. Physical Exam Narrative General: Alert, Oriented x3, Cooperative, No apparent distress HEENT: Atraumatic, PERRLA, EOMI, Normocephalic Oral: Moist Mucosa Neck: Supple, No JVD Lungs: Diminished, Normal air movement, No rhonchi, No wheeze, No rales Cardiovascular: Regular rate, Regular Rhythm, Normal S1, Normal S2, No murmurs Abdomen: Soft, Non Tender, Non-Distended, No Hepato-splenomegaly Extremities: No edema, Capillary Refill Less than 3 Seconds Skin: Lower extremity cellulitis with abscess status post I&D, dressings intact Musculoskeletal: No Tenderness to Palpation of Joints or Extremities Neurological: No focal neurological deficits, Motor Exam 5/5 strength throughout, Sensory exam intact to light touch and pain Psych/Mental Status: Normal Affect, Appropriate Weight / BMI Weight Weight: 138 lb 3.677 oz Body Mass Index (BMI) 23.6 ABG / Lab / Microbiology Data 04/26/23 06:50 04/27/23 05:57 Laboratory: Laboratory Results - last 24 hr 04/26/23 15:35: POC Glucose 264 H 04/26/23 20:04: Sodium 138, Potassium 2.8 L, Chloride 104, Carbon Dioxide 31.0, Anion Gap 3 L, BUN 14, Creatinine 0.75, Estim Creat Clear Calc 88.80, Est GFR (MDRD) Af Amer 138, Est GFR (MDRD) Non-Af 114, BUN/Creatinine Ratio 18.7, Glucose 260 H, Calcium 9.1, Phosphorus 1.7 L 04/26/23 20:22: POC Glucose 257 H 04/27/23 05:57: Sodium 141, Potassium 3.5, Chloride 109 H, Carbon Dioxide 27.0, Anion Gap 5, BUN 7, Creatinine 0.57 L, Estim Creat Clear Calc 116.84, Est GFR (MDRD) Af Amer 189, Est GFR (MDRD) Non-Af 156, BUN/Creatinine Ratio 12.3, Glucose 267 H, Calcium 8.9, Phosphorus 3.3 04/27/23 08:02: POC Glucose 261 H 04/27/23 11:39: POC Glucose 298 H Microbiology: Microbiology 04/24/23 11:15 Wound Abcess - Leg, Right Gram Stain - Final 04/24/23 11:15 Wound Abcess - Leg, Right Wound Culture - Final Staphylococcus aureus Streptococcus agalactiae (B) 04/23/23 19:30 Blood Culture (Wb) - Left Wrist Blood Culture - Preliminary No growth in 48 hours. 04/23/23 19:40 Blood Culture (Wb) - Anticubital Right Blood Culture - Preliminary No growth in 48 hours. 04/24/23 11:15 Wound Abcess - Leg, Right Gram Stain - Final 04/24/23 11:15 Wound Abcess - Leg, Right Wound Culture - Final Staphylococcus aureus 04/24/23 11:15 Wound Abcess - Leg, Left Gram Stain - Final 04/24/23 11:15 Wound Abcess - Leg, Left Wound Culture - Final Staphylococcus aureus 04/23/23 20:15 Mucosa - Nose SARS-CoV-2, Influenza & RSV (PCR) - Final D/C Instructions Discharge Diet: Carb Control Diet Call your doctor if you observe: Fever of 101 or Higher, Shortness of breath, Dizziness, Fainting spells, Swelling in the ankles, Chest pain and Increased palpitations (irregular heartbeat) Meaningful Use Info Meaningful Use Diagnoses (Choose all that apply): None applicable Discharge Plan Admission Admit Date/Time: 04/23/23 22:43 Attending Provider: Avni Wagner Primary Care Provider: Care Physician,No Primary Consulting Providers: Gerald Potter; Mohan Ken Discharge Orders/Prescriptions Prescriptions: New cephalexin 500 mg Capsule 500 mg PO Q8 6 Days Qty: 18 0RF insulin glargine-yfgn 100 unit/mL (3 mL) Insulin Pen 30 unit subcut DAILY 30 Days Qty: 9 0RF (DME) insulin admin supplies Insulin Pen See Rx Instructions .Route Qty: 1 0RF Rx Instructions: As directed Continued TRAYENTA 5 mg tablet 1 tab PO BID Patient Comments: 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
== END 2023-04-27 13:00 | disposition home or self-care (01) | DRG 602 ==
LOC: ED 20:06 → ICU 22:54 → MS3 04-24 18:56
PROVIDERS: Admitting Provider Internal Medicine; Emergency Provider Emergency Medicine; Visit Provider Family Medicine
DX: L02.415 Cutaneous abscess of right lower limb (principal); E11.10 Type 2 diabetes mellitus with ketoacidosis without coma; N17.9 Acute kidney failure, unspecified; E83.39 Other disorders of phosphorus metabolism; E11.65 Type 2 diabetes mellitus with hyperglycemia; E86.0 Dehydration; B95.61 Methicillin susceptible Staphylococcus aureus infection as the cause of diseases classified elsewhere; B95.1 Streptococcus, group B, as the cause of diseases classified elsewhere; Z79.4 Long term (current) use of insulin; E87.6 Hypokalemia; L03.115 Cellulitis of right lower limb; L03.116 Cellulitis of left lower limb; L02.416 Cutaneous abscess of left lower limb; Z87.891 Personal history of nicotine dependence
CPT/HCPCS: 36415; 36600; 71046; 76882; 80048; 80202; 80307; 81002; 82009; 82803; 82962; 83036; 83605; 83735; 83930; 84100; 84145; 84443; 84484; 85025; 87040; 87070; 87077; 87186; 87205; 87631; 87640; 93005; 94762; 97802; 99284; J7030; J7040; J7050; A4216